=== PATIENT | female | born 1980 | race Caucasian/White ===

== ENCOUNTER → 2016-04-28 | Emergency (ER) | payer OTHER ==
[~2016-04-28] MED LIST: RHO(D) IMMUNE GLOBULIN 1,500 UNIT DISP.SYRIN IM ONE
[2016-04-28 10:23] VITALS: PULSE 89; BMI 25.7
--- NOTE | 2016-04-28 10:38 | PDOC ---
History of Present Illness - General Chief Complaint: Vaginal Bleeding Stated Complaint: 6WKS , ABD PAIN, BLEEDING Time Seen by Provider: 04/28/16 10:33 History Source: Patient Exam Limitations: No Limitations - History of Present Illness Initial Comments: CHIEF COMPLAINT: 35 y/o [id number], approximately 6 week female with LMP 03/17/16 c/o vaginal bleeding yesterday. HISTORY OF PRESENT ILLNESS: The patient states she had 1 episode of vaginal bleeding yesterday with a few clots. She also had some mild lower abdominal cramping that felt like a period. She states everything stopped. Today she continues to have lower pelvic pressure and called Dr. Singh who suggested she come here to be evaluated. The patient denies f/c, n/v/d, CP, SOB, back pain, hematuria, dysuria. Vital signs on arrival are within normal limits. REVIEW OF SYSTEMS: GENERAL/CONSTITUTIONAL: No fever/chills. No weakness. No weight change. HEAD, EYES, EARS, NOSE AND THROAT: No change in vision. No ear pain or discharge. No sore throat. CARDIOVASCULAR: No chest pain or shortness of breath. RESPIRATORY: No cough, wheezing, or hemoptysis. GASTROINTESTINAL: +abdominal cramping. No nausea, vomiting, diarrhea. GENITOURINARY: No dysuria, frequency, or change in urination. +vaginal bleeding MUSCULOSKELETAL: No joint or muscle swelling or pain. No neck or back pain. SKIN: No rash or easy bruising. NEUROLOGIC: No headache, vertigo, loss of consciousness, or loss of sensation. PHYSICAL EXAM: GENERAL: The patient is awake, alert, and fully oriented, in no acute distress. She is well appearing and ambulatory. HEAD: Normal with no signs of trauma. ENT: Pupils equal, round and reactive to light, extraocular movements intact, sclera anicteric, conjunctiva clear. Neck supple. LUNGS: Clear to auscultation bilaterally. Normal excursion. No respiratory distress or use of accessory muscles. CV: RRR, S1/S2, no MRG. Cap refill < 2 sec. ABDOMEN: Soft, non-distended, non-tender even to deep palpation, no hepatomegaly or splenomegaly, no masses. VAGINAL: Scant brown blood seen at the opening of the os EXTREMITIES: Normal range of motion, no edema. NEUROLOGICAL: Normal speech, normal gait. CN II-XII grossly intact. PSYCH: Normal mood, normal affect. SKIN: Warm, dry, normal turgor, no rashes or lesions noted. Past History - Past Medical History Allergies/Adverse Reactions: Allergies Allergy/AdvReac Type Severity Reaction Status Date / Time No Known Allergies Allergy Verified 04/28/16 10:16 Home Medications: Ambulatory Orders Pnv Comb.no58/Iron Bisgly/FA [ Capsule] 1 cap PO DAILY 05/04/11 Asthma: No Cancer: No Cardiac Disorders: No Diabetes: No HTN: No Seizures: No Thyroid Disease: No Other medical history: denies - Psycho/Social/Smoking Cessation Hx Suicidal Ideation: No Smoking History: Never smoked Have you smoked in the past 12 months: No Hx Alcohol Use: No Drug/Substance Use Hx: No Substance Use Type: None Hx Substance Use Treatment: No *Physical Exam - Vital Signs Last Vital Signs Temp Pulse Resp BP Pulse Ox 97.9 F 89 14 110/54 99 04/28/16 10:16 04/28/16 10:16 04/28/16 10:16 04/28/16 10:16 04/28/16 10:16 ED Treatment Course - LABORATORY CBC & Chemistry Diagram: 04/28/16 10:59 04/28/16 10:59 Medical Decision Making - Medical Decision Making A/P: 35 y/o afebrile female, approximately 6 weeks c/o vaginal bleeding. Plan is as follows: 1. labs 2. UA/culture 3. Transvaginal Ultrasound Labs ok O Negative blood type - Rhogam ordered Transvaginal Ultrasound IMPRESSION: Single, live intrauterine of 7 weeks 1 day with heart rate of 140 bpm Gave patient all of her results. Instructed her to keep follow up appointment scheduled for 05/[address] Singh. Instructed her to return to the ER with any worsening or concerning symptoms. The patient verbalizes understanding of all instructions, has no further questions and is awaiting discharge. *DC/Admit/Observation/Transfer Diagnosis at time of Disposition: Vaginal bleeding in Qualifiers: Trimester: first trimester Qualified Code(s): O46.91 - Antepartum hemorrhage, unspecified, first trimester - Discharge Dispostion Disposition: HOME Condition at time of disposition: Good - Referrals Referrals: Ten Singh MD [Primary Care Provider] - (Keep appointment scheduled in May) - Patient Instructions Printed Discharge Instructions: DI for Vaginal Bleeding During Additional Instructions: Discharge Instructions: -Your ultrasound showed a baby of 7 weeks, 1 day with heart rate of 140bpm -Please keep your follow up appointment scheduled for next week with Dr. Singh -Return to the ER with any worsening or concerning symptoms. Print Language: WELSH
[2016-04-28 11:09] LABS: BASOPHIL 0.4 % (0-2.0); EOSINOPHIL 1.8 % (0-4.5); MCH 29.5 pg (25.7-33.7); MEAN CELL VOLUME 86.7 fl (80-96); MEAN PLT VOLUME 7.4 fl (7.5-11.1); NEUTROPHILS 68.6 % (42.8-82.8); PLATELET COUNT 234 K/MM3 (134-434); RDW 12.8 % (11.6-15.6); WHITE BLOOD COUNT 11.8 K/mm3 (4.0-10.0)
[2016-04-28 11:21] LABS: URINE APPEARANCE CLEAR; URINE BILIRUBIN NEGATIVE (NEGATIVE); URINE BLOOD NEGATIVE (NEGATIVE); URINE COLOR LTYELLOW; URINE GLUCOSE (UA) NEGATIVE (NEGATIVE); URINE KETONE NEGATIVE (NEGATIVE); URINE LEUK ESTERASE NEGATIVE (NEGATIVE); URINE NITRITE NEGATIVE (NEGATIVE); URINE PROTEIN NEGATIVE (NEGATIVE); URINE UROBILINOGEN NEGATIVE E.U./dl (0.2-1.0)
[2016-04-28 11:32] LABS: ALBUMIN 3.8 g/dl (3.4-5.0); ANION GAP 8 (8-16); BILIRUBIN,TOTAL 0.6 mg/dL (0.2-1.0); CALCIUM 8.7 mg/dL (8.5-10.1); CO2 27 mmol/L (21-32); CREATININE 0.6 mg/dL (0.55-1.02); GLUCOSE,RANDOM 94 mg/dL (74-106); SGOT/AST 11 U/L (15-37); SGPT/ALT 18 U/L (12-78); TOT PROT 7.4 g/dl (6.4-8.2)
[2016-04-28 11:47] LABS: ALK PHOS 73 U/L (45-117)
--- NOTE | 2016-04-28 11:59 | PDOC ---
[id number] 04/28/16 10:16 04/28/16 10:16 04/28/16 10:16 04/28/16 10:16 04/28/16 10:16 - Physical Exam Comments: 04/28/16 11:58 The patient was examined by [GATITO Verdugo] under my direct supervision. I personally evaluated the patient. I concur with the above findings and the plan of care. ED Treatment Course - LABORATORY CBC & Chemistry Diagram: 04/28/16 10:59 04/28/16 10:59 - ADDITIONAL ORDERS Additional order review: Laboratory Results 04/28/16 04/28/16 11:06 10:59 Sodium 139 Potassium 4.0 Chloride 104 Carbon Dioxide 27 Anion Gap 8 BUN 10 D Creatinine 0.6 Creat Clearance w eGFR > 60 Random Glucose 94 Calcium 8.7 Total Bilirubin 0.6 AST 11 L ALT 18 Alkaline Phosphatase 73 Total Protein 7.4 Albumin 3.8 Beta HCG, Quant 75391.4 Urine Color Ltyellow Urine Appearance Clear Urine pH 7.0 Ur Specific [place] 1.017 Urine Protein Negative Urine Glucose (UA) Negative Urine Ketones Negative Urine Blood Negative Urine Nitrite Negative Urine Bilirubin Negative Urine Urobilinogen Negative Ur Leukocyte Esterase Negative 04/28/16 10:59 RBC 4.62 D MCV 86.7 MCHC 34.0 RDW 12.8 MPV 7.4 L D Neutrophils % 68.6 Lymphocytes % 23.5 Monocytes % 5.7 Eosinophils % 1.8 D Basophils % 0.4 *DC/Admit/Observation/Transfer Diagnosis at time of Disposition: Vaginal bleeding in - Discharge Dispostion Disposition: HOME Condition at time of disposition: Good - Referrals Referrals: Ten Singh MD [Primary Care Provider] - (Keep appointment scheduled in May) - Patient Instructions Printed Discharge Instructions: DI for Vaginal Bleeding During Additional Instructions: Discharge Instructions: -Your ultrasound showed a baby of 7 weeks, 1 day with heart rate of 140bpm -Please keep your follow up appointment scheduled for next week with Dr. Singh -Return to the ER with any worsening or concerning symptoms. Print Language: NAURUAN
[2016-04-28 14:40] VITALS: BP 120/70; TEMP 98.3
== END | disposition home or self-care (01) ==
LOC: JER 10:13
DX: O46.91 Antepartum hemorrhage, unspecified, first trimester (principal); Z3A.09 9 weeks gestation of pregnancy; Z29.13 Encounter for prophylactic Rho(D) immune globulin
CPT/HCPCS: 36415; 76817-TC; 80053; 81003; 84702; 85025; 86850; 86900; 86901; 86999; 87086; 99283-25; J1561

== ENCOUNTER 2016-12-20 04:28 | Inpatient (IN) | payer OTHER ==
[2016-12-20 05:19] LABS: BASOPHIL 0.3 % (0-2.0); EOSINOPHIL 1.6 % (0-4.5); MCH 29.7 pg (25.7-33.7); MCHC 34.4 g/dl (32.0-36.0); MEAN CELL VOLUME 86.3 fl (80-96); MEAN PLT VOLUME 7.9 fl (7.5-11.1); NEUTROPHILS 58.7 % (42.8-82.8); PLATELET COUNT 189 K/MM3 (134-434); RDW 13.4 % (11.6-15.6); WHITE BLOOD COUNT 9.3 K/mm3 (4.0-10.0)
[2016-12-20 05:30] LABS: INR 0.92 (0.82-1.09); PROTHROMBIN TIME (PATIENT) 10.4 SEC (9.98-11.88)
[2016-12-20 05:38] LABS: ANION GAP 11 (8-16); CALCIUM 8.6 mg/dL (8.5-10.1); CO2 23 mmol/L (21-32); CREATININE 0.7 mg/dL (0.55-1.02); GLUCOSE,RANDOM 94 mg/dL (74-106)
[2016-12-20] MEDS ORDERED: BENZOCAINE 20% 57 GM BOTTLE TP PRN (05:51)
[2016-12-20] MEDS ORDERED: METHYLERGONOVINE MALEATE 0.2 MG/1 ML AMP IM PRN (05:51)
[2016-12-20] MEDS ORDERED: BENZOCAINE 28 GM HEMORRHOIDAL OINTMENT TP PRN (05:51)
[2016-12-20] MEDS ORDERED: BISACODYL 10 MG SUPP.RECT RC PRN (05:51)
[2016-12-20] MEDS ORDERED: WITCH HAZEL 50% (TUCKS) 40 PAD/JAR PAD TP PRN (05:51)
[2016-12-20] MEDS ORDERED: DEXTROSE 5%-LACTATED RINGERS 1,000 ML IV SCH (06:00)
[2016-12-20] MEDS ORDERED: OXYTOCIN 20 UNITS in 0.9% NS 1,000 ML IV SCH (06:00)
[2016-12-20 06:02] VITALS: BMI 27.2
[2016-12-20] MEDS: IBUPROFEN 600 MG TABLET (FP) PO PRN ×2 (07:51→14:41)
[2016-12-20] MEDS: ACETAMINOPHEN 325 MG TABLET (FP) PO PRN (07:54)
--- NOTE | 2016-12-20 11:27 | HP ---
Admitting History and Physical - Admission Chief Complaint: labor pains History of Present Illness: 36 y/o at term comes in 9 cm, pt of [facility]. 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: Alzheimer's, CVA, Dementia, Migraine, Multiple Sclerosis, Peripheral Neuropathy, Parkinson's, Seizure, Syncope, TIA, Vertigo, Other Cardiovascular: No: AFIB, Aneurysm, Aortic Insufficiency, Aortic Stenosis, CAD, CHF, Deep Vein Thrombosis, HTN, Hyperlipdemia, ID, Mitral Insufficiency, Mitral Stenosis, Murmur, Pulmonary Hypertension, Other Gastrointestinal: No: Ascites, Cancer, Constipation, Crohn's Disease, Diverticulitis, Diverticulosis, Esophageal Varices, Gastritis, GERD, GI Bleed, Hemorrhoids, Hiatal Hernia, Inflamatory Bowel Disease, Irritable Bowel Disease, Pancreatitis, Peptic Ulcer Disease, Ulcerative Colitis, Other Hepatobiliary: No: Cirrhosis, Cholelithiasis, Cholecystitis, Choledocholithiasis , Hepatitis A, Hepatitis B, Hepatitis C, Other Renal/: No: Renal Failure, Renal Inusuff, BPH, Cancer, Hematuria, Hemodialysis , Neurogenic Bladder, Renal Calculi, UTI, Other Reproductive: No: Ectopic , Endometriosis, Fibroids, PID, Polycystic Ovary Syndrome, Postmenopausal, Other ...LMP: 03/17/16 ...: 4 ...Para: 2 Heme/Onc: No: Anemia, B12 Deficiency, Bleeding Disorder, Cancer, Current Chemotherapy, Current Radiation Therapy, Hemochromatosis, Hypercoaguable State, Myeloproliferative Synd, Sickle Cell Disease, Sickle Cell Trait, Thrombocytopenia, Other Infectious Disease: No: AIDS, C-Diff, Herpes Zoster, HIV, MRSA, STD's, Tuberculosis, VREF, Other Psych: No: Addictions, Anxiety, Bipolar, Depression, Panic, Psychosis, Schizophrenia, Other Musculoskeletal: No: Bursitis, Chronic low back pain, Hemiparesis, Hemiplegia, Osteoarthritis, Paraplegia, Other Rheumatology: No: Fibromyalgia, Gout, Lupus, Rheumatoid Arthritis, Sarcoidosis, Vasculitis, Other ENT: No: Allergic Rhinitis, Sinusitis, Other Endocrine: No: [place]'s Disease, [place]'s Disease, Diabetes Insipidus, Diabetes Mellitus, Hyperparathyroidism, Hyperthyroidism, Hypothyroidism, Osteopenia, SIADH, Other Dermatology: No: Basal Cell, Cellulitis, Eczema, Melanoma, Psoriasis, Squamous Cell, Other - Past Surgical History Past Surgical History: No: None, AAA Repair, AICD, Amputation, Appendectomy, Arthrosocopy, AV Fistula/Graft, Bariatric Surgery, Breast Biopsy, Bypass, CABG, Carotid Endarterectomy, Cataract Removal, Cholecystectomy, Colectomy, Colonoscopy, Colostomy, Craniotomy, , Cystectomy, Hernia Repair, Hysterectomy, Ileal Conduit, Ileosotomy, Joint Replacement, Kidney Transplant, Laminectomy, Liver Transplant, Mastectomy, Nephrectomy, Oopherectomy, Orchiectomy, Permanent Pacemaker, Prostatectomy, Splenectomy, Stent, Thoracotomy , TURP, Tonsillectomy, Tubal Ligation, Upper Endoscopy, Valve Replacement, Vasectomy, Vein Stripping/Ligation - Advance Directives Advance Directives: No: Living Will, Health Care Proxy, DNR, Organ Donor, Tissue Donor, MOLST - Smoking History Smoking history: Never smoked Have you smoked in the past 12 months: No - Alcohol/Substance Use Hx Alcohol Use: No History of Substance Use: denies: None, Cocaine, Heroin, Marijuana, Prescription , Tranquilizers - Social History Usual Living Arrangement: No: Alone, With Spouse, With Parent, With Significant Other, With Child, Assisted Living, Halfway, Other Home Medications - Allergies Allergies/Adverse Reactions: Allergies Allergy/AdvReac Type Severity Reaction Status Date / Time No Known Allergies Allergy Verified 12/20/16 05:10 - Home Medications Home Medications: Ambulatory Orders Pnv Comb.no58/Iron Bisgly/FA [ Capsule] 1 cap PO DAILY 05/04/11 Review of Systems - Review of Systems Constitutional: denies: No Symptoms, Chills, Diaphoresis, Fever, Lethargy, Loss of Appetite, Malaise, Night Sweats, Unintentional Wgt. Loss, Weakness, Other Eyes: denies: No Symptoms, Blind Spots, Blurred Vision, Double Vision, Eye Pain , Floaters, Photophobia, Recent Change in Vision, Other HENT: denies: No Symptoms, Difficult Swallowing, Ear Discharge, Ear Pain, Epistaxis, Gingival Bleeding, Hearing Loss, Mouth Swelling, Nasal Congestion, Ocular Prosthesis, Throat Pain, Toothache, Ringing in Ears, Other Neck: denies: No Symptoms, Decreased ROM, Lumps, Pain on Movement, Stiffness, Swollen Glands, Tenderness, Other Cardiovascular: denies: No Symptoms, Chest Pain, Edema, Palpitations, Shortness of Breath, Other Gastrointestinal: denies: No Symptoms, Abdominal Pain, Bloating, Constipation, Diarrhea, Dysphagia, Indigestion, Melena, Nausea, Rectal Bleeding, Vomiting, Vomiting Blood, Other Musculoskeletal: reports: No Symptoms Integumentary: reports: No Symptoms Endocrine: reports: No Symptoms Hematology/Lymphatic: reports: No Symptoms Psychiatric: reports: No Symptoms Physical Examination Vital Signs: Vital Signs Temperature 98.8 F 12/20/16 07:00 Pulse Rate 74 12/20/16 07:00 Respiratory Rate 20 12/20/16 07:00 Blood Pressure 119/60 12/20/16 07:00 O2 Sat by Pulse Oximetry (%) 98 12/20/16 07:00 Constitutional: Yes: Well Nourished Eyes: Yes: WNL HENT: Yes: WNL Neck: Yes: WNL Cardiovascular: Yes: WNL Respiratory: Yes: WNL Gastrointestinal: Yes: WNL ...Rectal Exam: Yes: WNL Renal/: Yes: WNL Extremities: Yes: WNL Integumentary: Yes: WNL ...Motor Strength: WNL Psychiatric: Yes: WNL Labs: CBC, BMP 12/20/16 05:00 12/20/16 05:00 Assessment/Plan admit labs expect
[2016-12-21] MEDS: ACETAMINOPHEN 325 MG TABLET (FP) PO PRN ×2 (01:08→23:54)
[2016-12-21] MEDS: IBUPROFEN 600 MG TABLET (FP) PO PRN ×2 (01:09→23:55)
--- NOTE | 2016-12-21 06:25 | PN ---
Post Progress Note - Subjective Subjective: 36 yo Para 3 status post normal vaginal delivery, seen and evaluated. Doing well, no complaints. Post Day: 1 Type of Delivery: Vital Signs: Vital Signs Temperature 98.6 F 12/21/16 01:31 Pulse Rate 74 12/21/16 01:31 Respiratory Rate 20 12/21/16 01:31 Blood Pressure 137/80 12/21/16 01:31 O2 Sat by Pulse Oximetry (%) 98 12/20/16 07:00 Uterus: Yes: Fundus Firm Abdomen/GI: Yes: Abdomen soft, Tolerating PO Lochia: Yes: Rubra Lochia, amount: Moderate Extremities: Yes: Calves non-tender Activity: Ambulating - Labs Labs: CBC WBC 9.3 K/mm3 (4.0-10.0) 12/20/16 05:00 RBC 4.52 M/mm3 (3.60-5.2) 12/20/16 05:00 Hgb 13.4 GM/dL (10.7-15.3) 12/20/16 05:00 Hct 39.0 % (32.4-45.2) 12/20/16 05:00 MCV 86.3 fl (80-96) 12/20/16 05:00 MCH 29.7 pg (25.7-33.7) 12/20/16 05:00 MCHC 34.4 g/dl (32.0-36.0) 12/20/16 05:00 RDW 13.4 % (11.6-15.6) 12/20/16 05:00 Plt Count 189 K/MM3 (134-434) 12/20/16 05:00 MPV 7.9 fl (7.5-11.1) 12/20/16 05:00 Neutrophils % 58.7 % (42.8-82.8) 12/20/16 05:00 Lymphocytes % 32.1 % (8-40) D 12/20/16 05:00 Monocytes % 7.3 % (3.8-10.2) 12/20/16 05:00 Eosinophils % 1.6 % (0-4.5) 12/20/16 05:00 Basophils % 0.3 % (0-2.0) 12/20/16 05:00 Problem List - Problems (1) Status post normal vaginal delivery Code(s): [id number] - Assessment/Plan Status post normal vaginal delivery Stable Continue routine care
[2016-12-21 08:50] LABS: BASOPHIL 0.5 % (0-2.0); EOSINOPHIL 3.2 % (0-4.5); MCH 29.6 pg (25.7-33.7); MCHC 34.5 g/dl (32.0-36.0); MEAN CELL VOLUME 85.9 fl (80-96); MEAN PLT VOLUME 7.3 fl (7.5-11.1); NEUTROPHILS 60.5 % (42.8-82.8); PLATELET COUNT 167 K/MM3 (134-434); RDW 13.8 % (11.6-15.6)
[2016-12-21] MEDS ORDERED: DIPHTH,PERTUSS(ACELL),TET 0.5 ML DISP.SYRIN IM ONE (10:00)
[2016-12-21] MEDS ORDERED: SENNOSIDES/DOCUSATE COMBO (SENNA PLUS) TABLET (UD) PO PRN (22:00)
--- NOTE | 2016-12-22 07:14 | PN ---
Post Progress Note Post Day: 2 Type of Delivery: Vital Signs: Vital Signs Temperature 97.8 F 12/21/16 22:00 Pulse Rate 72 12/21/16 22:00 Respiratory Rate 18 12/21/16 22:00 Blood Pressure 128/77 12/21/16 22:00 O2 Sat by Pulse Oximetry (%) 98 12/20/16 07:00 Breast Exam: Yes: Soft Uterus: Yes: Fundus Firm Abdomen/GI: Yes: Abdomen soft Lochia, amount: Small Extremities: Yes: Calves non-tender Perineum: Yes: Intact Activity: Ambulating - Labs Labs: CBC WBC 11.0 K/mm3 (4.0-10.0) H 12/21/16 08:00 RBC 3.70 M/mm3 (3.60-5.2) 12/21/16 08:00 Hgb 11.0 GM/dL (10.7-15.3) D 12/21/16 08:00 Hct 31.8 % (32.4-45.2) L D 12/21/16 08:00 MCV 85.9 fl (80-96) 12/21/16 08:00 MCH 29.6 pg (25.7-33.7) 12/21/16 08:00 MCHC 34.5 g/dl (32.0-36.0) 12/21/16 08:00 RDW 13.8 % (11.6-15.6) 12/21/16 08:00 Plt Count 167 K/MM3 (134-434) 12/21/16 08:00 MPV 7.3 fl (7.5-11.1) L 12/21/16 08:00 Neutrophils % 60.5 % (42.8-82.8) 12/21/16 08:00 Lymphocytes % 31.4 % (8-40) 12/21/16 08:00 Monocytes % 4.4 % (3.8-10.2) 12/21/16 08:00 Eosinophils % 3.2 % (0-4.5) D 12/21/16 08:00 Basophils % 0.5 % (0-2.0) 12/21/16 08:00 Assessment/Plan ppd#2 dc home
[2016-12-22 08:27] VITALS: BP 134/71; PULSE 69; TEMP 98.3
== END 2016-12-22 11:40 | disposition home or self-care (01) | DRG 560 ==
LOC: JLDR 04:28 → J3W 08:30
PROVIDERS: ADMIT Obstetrics & Gynecology; ATTEND Obstetrics & Gynecology
PROC: 10E0XZZ Delivery of Products of Conception, External Approach (ICD-10-PCS; principal; 2016-12-20)
DX: O80 Encounter for full-term uncomplicated delivery (principal); Z3A.40 40 weeks gestation of pregnancy; Z37.0 Single live birth
CPT/HCPCS: 36415; 59409; 80048; 85025; 85610; 85730; 86593; 86850; 86900; 86901

== ENCOUNTER 2016-12-31 16:34 | Emergency (ER) | payer OTHER ==
[2016-12-31 16:58] VITALS: BMI 23.9
--- NOTE | 2016-12-31 18:01 | PDOC ---
History of Present Illness - History of Present Illness Initial Comments: 12/31/16 17:52 The patient is a 36 yo s/p on 12/20 and no other PMH who comes into the ED c/o generalized weakness for the past 1 day. This weakness was also associated with a feeling of weakness and tiredness in the back of her neck for the same time period. The patient also c/o decreased appetite as well as decreased sleep since the patient's child was born. Patient states that her mind was often preoccupied with managing her 3 kids and she occasionally forgets to eat. Patient denies SOB, CP, nausea, vomiting, dizziness, abdominal pain, excessive vaginal bleeding or discharge. <Eligio Guadarrama - Last Filed: 12/31/16 18:09> <Betty Dowd - Last Filed: 12/31/16 21:50> - General Chief Complaint: Headache Stated Complaint: HEADACHE/NECK PAIN Time Seen by Provider: 12/31/16 17:18 Past History - Past Medical History Asthma: No Cancer: No Cardiac Disorders: No Diabetes: No HTN: No Seizures: No Thyroid Disease: No - Reproductive History (#): 3 Para: 3 Therapeutic (s) & number: No Spontaneous : 1 - Suicide/Smoking/Psychosocial Hx Smoking History: Never smoked Have you smoked in the past 12 months: No Information on smoking cessation initiated: No Hx Alcohol Use: No Drug/Substance Use Hx: No Substance Use Type: None Hx Substance Use Treatment: No <Eligio Guadarrama - Last Filed: 12/31/16 18:09> <Betty Dowd - Last Filed: 12/31/16 21:50> - Past Medical History Allergies/Adverse Reactions: Allergies Allergy/AdvReac Type Severity Reaction Status Date / Time No Known Allergies Allergy Verified 12/31/16 16:58 Home Medications: Ambulatory Orders Cephalexin Monohydrate [Keflex -] 500 mg PO Q8H #21 capsule MDD 3 12/31/16 Cephalexin [Keflex] 500 mg PO TID 7 Days MDD 3 12/31/16 Review of Systems - Review of Systems Constitutional: No: Chills, Fever, Night Sweats HEENTM: No: Blurred Vision, Recent change in vision Respiratory: No: Shortness of Breath Cardiac (ROS): No: Chest Pain, Lightheadedness ABD/GI: No: Nausea, Vomiting Neurological: No: Headache, Numbness <Eligio Guadarrama - Last Filed: 12/31/16 18:09> *Physical Exam - Vital Signs Last Vital Signs Temp Pulse Resp BP Pulse Ox 97.9 F 82 18 125/64 100 12/31/16 16:52 12/31/16 16:52 12/31/16 16:52 12/31/16 16:52 12/31/16 16:52 - Physical Exam General Appearance: Yes: Appropriately Dressed. No: Apparent Distress HEENT: positive: EOMI, AILS. negative: Scleral Icterus (R), Scleral Icterus (L) Neck: positive: Trachea midline Respiratory/Chest: positive: Lungs Clear, Normal Breath Sounds. negative: Respiratory Distress, Accessory Muscle Use Cardiovascular: positive: Regular Rhythm, Regular Rate, S1, S2. negative: JVD, Murmur, Gallop/S3, Gallop/S4 Gastrointestinal/Abdominal: positive: Normal Bowel Sounds, Soft. 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 negative: EOM Palsy, Numbness, Sensory Deficit <Eligio Guadarrama - Last Filed: 12/31/16 18:09> - Vital Signs Last Vital Signs Temp Pulse Resp BP Pulse Ox 97.9 F 82 18 125/64 100 12/31/16 16:52 12/31/16 16:52 12/31/16 16:52 12/31/16 16:52 12/31/16 16:52 <Betty Dowd - Last Filed: 12/31/16 21:50> ED Treatment Course - LABORATORY CBC & Chemistry Diagram: 12/31/16 18:30 12/31/16 18:30 - ADDITIONAL ORDERS Additional order review: Laboratory Results 12/31/16 18:30 Sodium 140 Potassium 3.8 Chloride 106 Carbon Dioxide 26 Anion Gap 8 BUN 11 D Creatinine 0.8 Creat Clearance w eGFR > 60 Random Glucose 95 Calcium 8.8 Total Bilirubin 0.6 AST 22 D ALT 33 D Alkaline Phosphatase 113 D Total Protein 6.9 Albumin 3.4 12/31/16 18:30 RBC 4.67 D MCV 84.9 MCHC 34.2 RDW 13.1 MPV 7.0 L - Medications Given in the ED: ED Medications Discontinued Medications Generic Name Dose Route Start Last Admin Trade Name Tony PRN Reason Stop Dose Admin Sodium Chloride 1,000 mls @ 1,000 mls/hr 12/31/16 18:08 12/31/16 18:40 Normal Saline - IV 12/31/16 19:07 1,000 mls/hr ASDIR STA Administration <Betty Dowd - Last Filed: 12/31/16 21:50> Medical Decision Making - Medical Decision Making 12/31/16 18:23 The patient is a 36 yo f w/ no PMH and about 2 weeks post comes in c/o generalized weakness and decreased appetite. Patient endorses decreased PO intake and decreased sleep recently. Patient denies any headache at any point. Patient does not endorse any excessive bleeding. No focal neurological deficits appreciated. Patient is likely sleep deprived and dehydrated. -CBC, CMP -1L NS bolus -will reevaluate <Eligio Guadarrama - Last Filed: 12/31/16 18:09> *DC/Admit/Observation/Transfer <Eligio Guadarrama - Last Filed: 12/31/16 18:09> - Discharge Dispostion Admit: No <Betty Dowd - Last Filed: 12/31/16 21:50> Diagnosis at time of Disposition: Dehydration, Urinary tract infection - Discharge Dispostion Disposition: HOME Condition at time of disposition: Improved - Prescriptions Prescriptions: Cephalexin [Keflex] 500 mg PO TID 7 Days MDD 3 Cephalexin Monohydrate [Keflex -] 500 mg PO Q8H #21 capsule MDD 3 - Referrals Referrals: Pete Singh [Primary Care Provider] - - Patient Instructions Printed Discharge Instructions: Infant Feeding: Breast or Bottle?, DI for Dehydration -- Adult Additional Instructions: you should follow up with your primary doctor. call to schedule. be sure to drink plenty of fluids and eat plenty. return for any problems or concerns. Print Language: FINNISH
[2016-12-31] MEDS ORDERED: SODIUM CHLORIDE 1,000 ML IV STA (18:08)
[2016-12-31 18:48] LABS: MCH 29.1 pg (25.7-33.7); MCHC 34.2 g/dl (32.0-36.0); MEAN CELL VOLUME 84.9 fl (80-96); PLATELET COUNT 331 K/MM3 (134-434); RDW 13.1 % (11.6-15.6); WHITE BLOOD COUNT 15.6 K/mm3 (4.0-10.0)
[2016-12-31 19:26] LABS: ALBUMIN 3.4 g/dl (3.4-5.0); ANION GAP 8 (8-16); CALCIUM 8.8 mg/dL (8.5-10.1); CO2 26 mmol/L (21-32); CREATININE 0.8 mg/dL (0.55-1.02); GLUCOSE,RANDOM 95 mg/dL (74-106); SGOT/AST 22 U/L (15-37); SGPT/ALT 33 U/L (12-78)
[2016-12-31 19:28] LABS: ALK PHOS 113 U/L (45-117); BILIRUBIN,TOTAL 0.6 mg/dL (0.2-1.0); TOT PROT 6.9 g/dl (6.4-8.2)
--- NOTE | 2016-12-31 19:30 | PDOC ---
*Physical Exam - Vital Signs Last Vital Signs Temp Pulse Resp BP Pulse Ox 97.9 F 82 18 125/64 100 12/31/16 16:52 12/31/16 16:52 12/31/16 16:52 12/31/16 16:52 12/31/16 16:52 - Physical Exam Comments: 12/31/16 19:30 GENERAL: Awake, alert, and fully oriented, in no acute distress HEAD: No signs of trauma, normocephalic, atraumatic EYES: PERRLA, EOMI, sclera anicteric, conjunctiva clear ENT: Auricles normal inspection, hearing grossly normal, nares patent, oropharynx clear without exudates. Moist mucosa NECK: Normal ROM, supple, no lymphadenopathy, JVD, or masses LUNGS: No distress, speaks full sentences, clear to auscultation bilaterally HEART: Regular rate and rhythm, normal S1 and S2, no murmurs, rubs or gallops, peripheral pulses normal and equal bilaterally. ABDOMEN: Soft, nontender, normoactive bowel sounds. No guarding, no rebound. No masses EXTREMITIES : Normal inspection, Normal range of motion, no edema. No clubbing or cyanosis. SKIN: Warm, Dry, normal turgor, no rashes or lesions noted. ED Treatment Course - LABORATORY CBC & Chemistry Diagram: 12/31/16 18:30 12/31/16 18:30 - ADDITIONAL ORDERS Additional order review: 12/31/16 18:30 RBC 4.67 D MCV 84.9 MCHC 34.2 RDW 13.1 MPV 7.0 L - Medications Given in the ED: ED Medications Discontinued Medications Generic Name Dose Route Start Last Admin Trade Name Freq PRN Reason Stop Dose Admin Sodium Chloride 1,000 mls @ 1,000 mls/hr 12/31/16 18:08 12/31/16 18:40 Normal Saline - IV 12/31/16 19:07 1,000 mls/hr ASDIR STA Administration Medical Decision Making - Medical Decision Making 12/31/16 19:27 Per patient hand off from Dr. Guadarrama. 36 yo F 2 weeks who presents with generalized weakness and decreased appetite. reports insomnia and decreased apetitie since childbirth. This AM reports generalized weakness, and decreased PO intake. Physical exam benign and hemodynamically stable: ED Course: CBC, CMP, UA 1 L NS Patient status improved and requests D/c. 12/31/16 20:19 WBC 15.6 12/31/16 20:20 CMP: Unremarkable 12/31/16 23:32 Stable D/C *DC/Admit/Observation/Transfer Diagnosis at time of Disposition: Dehydration, UTI (urinary tract infection) - Discharge Dispostion Disposition: HOME Condition at time of disposition: Improved - Prescriptions Prescriptions: Cephalexin [Keflex] 500 mg PO TID 7 Days MDD 3 Cephalexin Monohydrate [Keflex -] 500 mg PO Q8H #21 capsule MDD 3 - Referrals Referrals: Pete Singh [Primary Care Provider] - - Patient Instructions Printed Discharge Instructions: Infant Feeding: Breast or Bottle?, DI for Dehydration -- Adult Additional Instructions: you should follow up with your primary doctor. call to schedule. be sure to drink plenty of fluids and eat plenty. return for any problems or concerns. Print Language: MACEDONIAN
--- NOTE | 2016-12-31 20:04 | PDOC ---
Attending Attestation - Resident Resident Name: ChiaraEligio - ED Attending Attestation I have performed the following: I have examined & evaluated the patient, The case was reviewed & discussed with the resident, I agree w/resident's findings & plan, Exceptions are as noted - HPI HPI: 12/31/16 19:59 36 yo F 2 weeks post here with c/o feeling weak, and tired, .describes a " weak feeling in back of head " lightheaded. no vertigo. denies headache ( contrary to triage note). no vision changes. no h/o diabetes or htn associated with . has 2 other small children in addition to new born, and states she has not been sleeping well. no f/c no cp no sob. no leg swelling. denies feelings of depression or suicidality, no homicidality. has not been eating well. is breast feeding. 12/31/16 20:01 - Physicial Exam PE: 12/31/16 20:01 awake alert lungs CTAB heart rrr no mrg. abd soft nt nd. ext wwp. no edema. nuero awake alert oriented x 3. 5/5 all four extremeties.CN intact. - Medical Decision Making 12/31/16 20:03 36 yo F post 2 weeks c/o feeling lightheaded, weak and tired. differential fatigue , dehydration anemia. electrolyte abnormality. denies headache. bp normal. will check labs ua . iv hydration reassess. 12/31/16 20:04 pt feeling improved. would like to go home. WBC noted to be elevated 15. ua pending. pt would like to go home. dc will call with results. phone [phone] 12/31/16 21:50 ua positive for uti. called in prescription for keflex 500 mg tid x 7 days.
[2016-12-31 20:09] VITALS: BP 135/73; PULSE 90; TEMP 97.7
[2016-12-31 20:51] LABS: URINE APPEARANCE SLCLOUDY; URINE BILIRUBIN NEGATIVE (NEGATIVE); URINE BLOOD 3+ (NEGATIVE); URINE COLOR STRAW; URINE GLUCOSE (UA) NEGATIVE (NEGATIVE); URINE KETONE NEGATIVE (NEGATIVE); URINE NITRITE NEGATIVE (NEGATIVE); URINE PROTEIN NEGATIVE (NEGATIVE); URINE UROBILINOGEN NEGATIVE mg/dL (0.2-1.0)
[2016-12-31 20:57] LABS: URINE MUCUS RARE; URINE RBC 3 /hpf (0-3); URINE WBC 29 /hpf (3-5)
[2016-12-31 23:08] LABS: URINE LEUK ESTERASE 3+ (NEGATIVE)
== END 2016-12-31 20:24 | disposition home or self-care (01) ==
LOC: JER 16:34
PROC: 3E0337Z Introduction of Electrolytic and Water Balance Substance into Peripheral Vein, Percutaneous Approach (ICD-10-PCS; principal; 2016-12-31)
DX: O86.29 Other urinary tract infection following delivery (principal); E86.0 Dehydration
CPT/HCPCS: 36415; 80053; 81003; 81015; 85027; 87086; 96360; 99283-25

== ENCOUNTER 2018-08-22 09:24 | Emergency (ER) | payer OTHER ==
[2018-08-22 09:30] VITALS: BP 130/65; PULSE 85; BMI 25.9
[2018-08-22] MEDS ORDERED: LIDOCAINE 5% TOPICAL PATCH TP ONE (10:16)
[2018-08-22] MEDS ORDERED: KETOROLAC TROMETHAMINE 60 MG/2 ML VIAL IM ONE (10:16)
[2018-08-22] MEDS ORDERED: LIDOCAINE 5% TOPICAL PATCH ONE ×2 (10:20)
[2018-08-22] MEDS ORDERED: KETOROLAC TROMETHAMINE 60 MG/2 ML VIAL ONE (10:20)
--- NOTE | 2018-08-22 10:36 | PDOC ---
History of Present Illness - General Chief Complaint: Pain, Acute Stated Complaint: NECK PAIN Time Seen by Provider: 08/22/18 09:37 History Source: Patient Exam Limitations: No Limitations Past History - Travel Traveled outside of the country in the last 30 days: No Close contact w/someone who was outside of country & ill: No - Past Medical History Allergies/Adverse Reactions: Allergies Allergy/AdvReac Type Severity Reaction Status Date / Time No Known Allergies Allergy Verified 08/22/18 09:28 Home Medications: Ambulatory Orders NK [No Known Home Medication] 08/22/18 Asthma: No Cancer: No Cardiac Disorders: No COPD: No Diabetes: No HTN: No Seizures: No Thyroid Disease: No - Reproductive History (#): 3 Para: 3 Therapeutic (s) & number: No Spontaneous : 1 - Suicide/Smoking/Psychosocial Hx Smoking History: Never smoked Have you smoked in the past 12 months: No Information on smoking cessation initiated: No Hx Alcohol Use: No Drug/Substance Use Hx: No Substance Use Type: None Hx Substance Use Treatment: No Review of Systems - Review of Systems Able to Perform ROS?: Yes Comments:: 08/22/18 10:31 CONSTITUTIONAL: Absent: fever, chills, diaphoresis, generalized weakness, malaise, loss of appetite HEENT: Present: neck pain Absent: rhinorrhea, nasal congestion, throat pain, throat swelling, difficulty swallowing, mouth swelling, ear pain, eye pain, visual Changes MUSCULOSKELETAL: Absent: myalgia, arthralgia, joint swelling SKIN: Absent: rash, itching, pallor NEUROLOGIC: Absent: headache, focal weakness or paresthesias, dizziness, unsteady gait, seizure, mental status changes, bladder or bowel incontinence PSYCHIATRIC: Absent: anxiety, depression, suicidal or homicidal ideation, hallucinations. Is the patient limited Romansh proficient: No *Physical Exam - Vital Signs Last Vital Signs Temp Pulse Resp BP Pulse Ox 85 18 130/65 100 08/22/18 09:28 08/22/18 09:28 08/22/18 09:28 08/22/18 09:28 - Physical Exam Comments: 08/22/18 10:32 GENERAL: Well developed, well nourished. Awake and alert. No acute distress. HEENT: Normocephalic, atraumatic. PERRLA, EOMI. No conjunctival pallor. Sclera are non- icteric. Moist mucous membranes. Oropharynx is clear. NECK: Supple. Full ROM. No JVD. Carotid pulses 2+ and symmetric, without bruits. No thyromegaly. No lymphadenopathy. MUSCULOSKELETAL TTP of the L trapezius muscle at the insertion points at the base of the skull and L shoulder. Dicofenec patch in place. Normal range of motion at all joints. No bony deformities or tenderness. No CVA tenderness. EXTREMITIES: No cyanosis. No clubbing. No edema. No calf tenderness. SKIN: Warm and dry. Normal capillary refill. No rashes. No jaundice. NEUROLOGICAL: Alert, awake, appropriate. Cranial nerves 2-12 intact. No deficits to light touch and temperature in face, upper extremities and lower extremities. No motor deficits in the in face, upper extremities and lower extremities. Normoreflexic in the upper and lower extremities. Normal speech. Toes are down- going bilaterally. Gait is normal without ataxia. PSYCHIATRIC: Cooperative. Good eye contact. Appropriate mood and affect. ED Treatment Course - ADDITIONAL ORDERS Additional order review: Laboratory Results 08/22/18 09:30 Urine HCG, Qual Negative - Medications Given in the ED: ED Medications Discontinued Medications Generic Name Dose Route Start Last Admin Trade Name Freq PRN Reason Stop Dose Admin Ketorolac Tromethamine 60 mg 08/22/18 10:16 08/22/18 10:29 Toradol Injection - IM 08/22/18 10:17 60 mg ONCE ONE Administration Lidocaine 1 patch 08/22/18 10:16 08/22/18 10:28 Lidoderm Patch - TP 08/22/18 10:17 1 patch ONCE ONE Administration Medical Decision Making - Medical Decision Making 08/22/18 10:33 The patient is a 38-year-old female no past medical history who presents to the ER today for left-sided neck pain and arm pain. She states her pain started on Tuesday. She took some Motrin at home with some relief of her symptoms. She last took Motrin last night. She states that since she still had pain this morning when she woke up she decided to come to the ER for evaluation for some stronger medication. 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 A/P: Cervical radiculopathy/trapezius strain On exam patient with palpable spasms over the left trapezius at both the base of the skull and left shoulder. Most likely a muscle spasm. Patient reports the symptoms traveling down her arm. Full range of motion of both the neck and arm intact. patient given Toradol and lidocaine patch with relief of symptoms. Diclofenac patch was removed. We will give or so follow-up. Discharge home I discussed the physical exam findings, ancillary test results and final diagnoses with the patient. I answered all of the patient's questions. The patient was satisfied with the care received and felt comfortable with the discharge plan and treatment plan. The Patient agrees to follow up with the primary care physician/specialist within 24-72 hours. Return precautions were given. *DC/Admit/Observation/Transfer Diagnosis at time of Disposition: Neck pain - Discharge Dispostion Disposition: HOME Condition at time of disposition: Stable Decision to Admit order: No - Referrals Referrals: Bernabe Schneider MD [Primary Care Provider] - - Patient Instructions Printed Discharge Instructions: DI for Cervical Radiculopathy Additional Instructions: you were evaluated for your neck pain today. It is most likely due to a muscle spasm. Please take the Medrol Dosepak and Flexeril as prescribed. You may also take Tylenol 1000 milligrams every 6 hours as needed for pain follow up with orthopedics if your symptoms are not improving. A referral has been provided. Return to the ER for any new or worsening symptoms. usted fue evaluado para guzman dolor de kuldip reid. Es ms probable debido a un espasmo muscular. Por favor, tome el Medrol Dosepak y Flexeril segn lo prescrito. Salbador puede shivam Tylenol 1000 miligramos cada 6 horas segn sea necesario para el dolor seguimiento con ortopedia si sergio sntomas no estn mejorando. Se cornell proporcionado valerie referencia. Regrese a Urgencias para cualquier sntoma nuevo o que empeore. Print Language: MACEDONIAN - Post Discharge Activity Forms/Work/School Notes: Back to Work
[2018-08-22] MEDS ORDERED: LIDOCAINE PATCH REMOVAL MC SCH (22:00)
== END 2018-08-22 10:35 | disposition home or self-care (01) ==
LOC: JERFT 09:24
PROC: 3E0233Z Introduction of Anti-inflammatory into Muscle, Percutaneous Approach (ICD-10-PCS; principal; 2018-08-22)
DX: M54.12 Radiculopathy, cervical region (principal); M62.838 Other muscle spasm
CPT/HCPCS: 84703; 96372; 99281-25

== ENCOUNTER 2018-11-29 04:11 | Emergency (ER) | payer OTHER ==
[2018-11-29 04:34] VITALS: TEMP 98.2; BMI 30.7
[2018-11-29] MEDS ORDERED: SODIUM CHLORIDE 1,000 ML IV STA (04:52)
--- NOTE | 2018-11-29 04:52 | PDOC ---
Attending Attestation - Resident Resident Name: Naveed Gallagher - ED Attending Attestation I have performed the following: I have examined & evaluated the patient, The case was reviewed & discussed with the resident, I agree w/resident's findings & plan - HPI HPI: 11/29/18 20:30 see resident hpi 11/29/18 20:30 - Physicial Exam PE: 11/29/18 20:30 agree with resident hpi - Medical Decision Making 11/29/18 20:30 38-year-old female with room spinning dizziness CT scan of the brain is negative Patient improved after meclizine and Reglan Patient discharged home with outpatient ENT follow-up
[2018-11-29] MEDS ORDERED: MECLIZINE HCL 25 MG TABLET (FP) PO ONE (04:53)
[2018-11-29] MEDS ORDERED: METOCLOPRAMIDE HCL INJECTION 10 MG/2 ML VIAL IVPB ONE (04:54)
[2018-11-29] MEDS ORDERED: METOCLOPRAMIDE HCL INJECTION 10 MG/2 ML VIAL IVPUSH ONE (04:54)
--- NOTE | 2018-11-29 04:54 | PDOC ---
History of Present Illness - General Chief Complaint: Lightheaded Stated Complaint: WEAKNESS Time Seen by Provider: 11/29/18 04:38 History Source: Patient Exam Limitations: Language Barrier - History of Present Illness Initial Comments: Mily Cazares is a 38 yo F w a hx of migraines and anxiety who presents to the [facility] er because she has been experiencing dizziness described as room spinning for the past 2 days associated with occasional bi-frontal headaches and generalized weakness. Patient also endorses nausea and occasional NBNB vomitus. Patient states her symptoms began tonight when she turned over in bed. She looked over at her and all of a sudden the room started spinning and she became nauseous. The patient states that every time she turns over in bed the room starts to spin. Patient states she had a URI last week and is recovering this week. Denies fevers, chills, chest pain, neck pain LMP: 20 days prior PCP: Bernabe Schneider PSH: None reported Allergies: NKA, NKDA Social Hx: Denies smoking, drinking, or other substance usage. Past History - Past Medical History Allergies/Adverse Reactions: Allergies Allergy/AdvReac Type Severity Reaction Status Date / Time No Known Allergies Allergy Verified 11/29/18 04:34 Home Medications: Ambulatory Orders Ergocalciferol [Vitamin D2] 50,000 unit PO WEEKLY 11/29/18 Meclizine HCl 25 mg PO PRN 10 Days #10 tab.chew 11/29/18 Sumatriptan Succinate [Imitrex -] 50 mg PO ASDIR PRN 11/29/18 Terbinafine HCl 250 mg PO DAILY 11/29/18 Asthma: No Cancer: No Cardiac Disorders: No COPD: No Diabetes: No HTN: No Seizures: No Thyroid Disease: No Other medical history: migraines - Reproductive History (#): 3 Para: 3 Therapeutic (s) & number: No Spontaneous : 1 - Psycho Social/Smoking Cessation Hx Smoking History: Never smoked Have you smoked in the past 12 months: No Hx Alcohol Use: No Drug/Substance Use Hx: No Substance Use Type: None Hx Substance Use Treatment: No Review of Systems - Review of Systems Able to Perform ROS?: Yes Comments:: CONSTITUTIONAL: Absent: fever, no chills, no fatigue EYES: Present: Room spinning ENT: Absent: ear pain, no sore throat CARDIOVASCULAR: Absent: chest pain, no palpitations RESPIRATORY: Absent: cough, no SOB GI: Present: Nausea, vomiting Absent: abdominal pain, no constipation, no diarrhea GENITOURINARY: Absent: dysuria, no frequency, no hematuria MUSKULOSKELETAL: Absent: back pain, no arthralgia, no myalgia SKIN: Absent: rash NEURO: Present: headache *Physical Exam - Vital Signs Last Vital Signs Temp Pulse Resp BP Pulse Ox 98.2 F 71 18 119/67 100 11/29/18 04:11/29/18 04:11/29/18 04:11/29/18 04:11/29/18 04:25 - Physical Exam Comments: GENERAL: Well developed, well nourished. Awake and alert. No acute distress. HEENT: Normocephalic, atraumatic. PERRLA, EOMI. No conjunctival pallor. Sclera are non- icteric. Moist mucous membranes. Oropharynx is clear. NECK: + b/l cervical adenopathy. Supple. Full ROM. No JVD. No thyromegaly. CARDIOVASCULAR: Regular rate and rhythm. No murmurs, rubs, or gallops. Distal pulses are 2+ and symmetric. PULMONARY: No evidence of respiratory distress. Lungs clear to auscultation bilaterally. No wheezing, rales or rhonchi. ABDOMINAL: Soft. Non-tender. Non-distended. No rebound or guarding. No organomegaly. Normoactive bowel sounds. MUSCULOSKELETAL Normal range of motion at all joints. No bony deformities or tenderness. No CVA tenderness. EXTREMITIES: No cyanosis. No clubbing. No edema. No calf tenderness. SKIN: Warm and dry. Normal capillary refill. No rashes. No jaundice. NEUROLOGICAL: Dixs-Hallpike test is + with head facing to the right. No other abnormal nystagmus. Alert, awake, appropriate. Cranial nerves 2-12 intact. No deficits to light touch in face, upper extremities and lower extremities. No motor deficits in the in face, upper extremities and lower extremities. Normal speech. Gait is normal without ataxia. PSYCHIATRIC: Cooperative. Good eye contact. Appropriate mood and affect. ED Treatment Course - LABORATORY CBC & Chemistry Diagram: 11/29/18 05:10 11/29/18 05:10 - RADIOLOGY Radiograph Interpretation: Head CT: HISTORY: Dizziness COMPARISON: None. FINDINGS: No evidence of hemorrhage, acute territorial infarction, mass effect, midline shift, hydrocephalus, or extra-axial collections. No hyperdense arterial or venous sign Clear paranasal sinuses, mastoid air cells, and middle ear cavities are The calvarium is intact. IMPRESSION: 1. No acute intracranial pathology Medical Decision Making - Medical Decision Making Mily Cazares is a 38 yo F w a hx of migraines and anxiety who presents to the [facility] er because she has been experiencing dizziness described as room spinning for the past 2 days associated with occasional bi-frontal headaches and generalized weakness. Patient also endorses nausea and occasional NBNB vomitus. Patient states her symptoms began tonight when she turned over in bed. She looked over at her and all of a sudden the room started spinning and she became nauseous. The patient states that every time she turns over in bed the room starts to spin. Patient states she had a URI last week and is recovering this week. Denies fevers, chills, chest pain, neck pain Vital Signs Temp Pulse Resp BP Pulse Ox 98.2 F 71 18 119/67 100 11/29/18 04:25 11/29/18 04:25 11/29/18 04:25 11/29/18 04:25 11/29/18 04:25 DDx IBNLT: Complex migraine, tension/cluster headache, BPPV, post viral labyrinthiitis, Brain lesion, electrolyte/metabolic disturbance, , meniere disease, ICH, arrhythmia Plan: Labs, EKG, Head CT, meclizine, IVNS, reglan, re-assess. EKG: NS rate of 73, 1st degree HB w NE of 228, normal axis, no hypertrophy, no ST elevations or depressions, no abnormal TWI's Labs: Unremarkable Head CT: No acute intracranial pathology Re-assessment: Patient feels better after supportive care Disposition: Home w PCP fu - Meclizine sent to pharmacy *DC/Admit/Observation/Transfer Diagnosis at time of Disposition: Vertigo, Weakness Peripheral vertigo Qualifiers: Laterality: unspecified laterality Qualified Code(s): H81.399 - Other peripheral vertigo, unspecified ear - Discharge Dispostion Disposition: HOME Condition at time of disposition: Improved Decision to Admit order: No - Prescriptions Prescriptions: Meclizine HCl 25 mg PO PRN 10 Days #10 tab.chew - Referrals Referrals: Bernabe Schneider MD [Primary Care Provider] - Sebas Garrett MD [Staff Physician] - Cheikh Slade MD [Staff Physician] - - Patient Instructions Printed Discharge Instructions: Vertigo (Alternative Therapy), Benign Paroxysmal Positional Vertigo, DI for Vertigo Additional Instructions: Please follow up with your primary doctor in the next 3 days. Come back to the ER immediately if you experience any pain, worsening of your symptoms, or any other concerns. Thank you for coming to the [facility] ER. We hope you feel better soon! Print Language: FILIPINO - Post Discharge Activity Discharge - Discharge Information Problems reviewed: Yes Clinical Impression/Diagnosis: Vertigo, Weakness Peripheral vertigo Qualifiers: Laterality: unspecified laterality Qualified Code(s): H81.399 - Other peripheral vertigo, unspecified ear Condition: Improved Disposition: HOME - Additional Discharge Information Prescriptions: Meclizine HCl 25 mg PO PRN 10 Days #10 tab.chew - Follow up/Referral Referrals: Sebas Garrett MD [Staff Physician] - Bernabe Schneider MD [Primary Care Provider] - Cheikh Slade MD [Staff Physician] - - Patient Discharge Instructions Patient Printed Discharge Instructions: Vertigo (Alternative Therapy), Benign Paroxysmal Positional Vertigo, DI for Vertigo Additional Instructions: Please follow up with your primary doctor in the next 3 days. Come back to the ER immediately if you experience any pain, worsening of your symptoms, or any other concerns. Thank you for coming to the [facility] ER. We hope you feel better soon! Print Language: FILIPINO - Post Discharge Activity
[2018-11-29] MEDS ORDERED: METOCLOPRAMIDE HCL INJECTION 10 MG/2 ML VIAL ONE (05:00)
[2018-11-29] MEDS ORDERED: MECLIZINE HCL 25 MG TABLET (FP) ONE (05:00)
[2018-11-29 05:32] LABS: BASO % 0.3 % (0-2.0); EOS % 1.6 % (0-4.5); HEMATOCRIT 38.9 % (32.4-45.2); HEMOGLOBIN 13.3 GM/dL (10.7-15.3); MCH 29.7 pg (25.7-33.7); MCHC 34.2 g/dl (32.0-36.0); MEAN PLT VOLUME 7.8 fl (7.5-11.1); MONO % 5.1 % (3.8-10.2); PLATELET COUNT 218 K/MM3 (134-434); RBC 4.47 M/mm3 (3.60-5.2); RDW 12.6 % (11.6-15.6); WHITE BLOOD COUNT 13.3 K/mm3 (4.0-10.0)
[2018-11-29 05:56] LABS: ALBUMIN 3.6 g/dl (3.4-5.0); BILIRUBIN,TOTAL 0.3 mg/dL (0.2-1); BLOOD UREA NITROGEN 14.6 mg/dL (7-18); CALCIUM 8.9 mg/dL (8.5-10.1); CREATININE 0.7 mg/dL (0.55-1.3); TOT PROT 6.8 g/dl (6.4-8.2)
[2018-11-29 06:44] VITALS: BP 117/61; PULSE 93
--- NOTE | 2018-11-29 10:43 | EKG ---
Test Reason : Blood Pressure : / mmHG Vent. Rate : 073 BPM Atrial Rate : 073 BPM P-R Int : 228 ms QRS Dur : 084 ms QT Int : 390 ms P-R-T Axes : 045 072 033 degrees QTc Int : 429 ms SINUS RHYTHM WITH 1ST DEGREE A-V BLOCK OTHERWISE NORMAL ECG NO PREVIOUS ECGS AVAILABLE Confirmed by MILTON FABIAN, MATT ([id number]) on 11/29/2018 10:43:16 AM Referred By: Confirmed By:MATT ROSE MD
== END 2018-11-29 06:44 | disposition home or self-care (01) ==
LOC: JER 04:11
PROC: 3E0337Z Introduction of Electrolytic and Water Balance Substance into Peripheral Vein, Percutaneous Approach (ICD-10-PCS; principal; 2018-11-29)
PROC: 3E033GC Introduction of Other Therapeutic Substance into Peripheral Vein, Percutaneous Approach (ICD-10-PCS; 2018-11-29)
DX: H81.399 Other peripheral vertigo, unspecified ear (principal); G43.909 Migraine, unspecified, not intractable, without status migrainosus; F41.9 Anxiety disorder, unspecified
CPT/HCPCS: 36415; 70450-TC; 80053; 84484; 84703; 85025; 93005; 93010; 99283-25; J7030

== ENCOUNTER 2019-04-11 09:03 | Emergency (ER) | payer OTHER ==
[2019-04-11 09:09] VITALS: BMI 25.2
[2019-04-11 10:11] LABS: BASO % 0.3 % (0-2.0); EOS % 1.4 % (0-4.5); HEMATOCRIT 38.6 % (32.4-45.2); HEMOGLOBIN 13.2 GM/dL (10.7-15.3); LYMPH % 22.1 % (8-40); MCH 29.7 pg (25.7-33.7); MCHC 34.2 g/dl (32.0-36.0); MEAN CELL VOLUME 86.7 fl (80-96); MEAN PLT VOLUME 8.2 fl (7.5-11.1); MONO % 4.6 % (3.8-10.2); NEUT % 71.6 % (42.8-82.8); PLATELET COUNT 242 K/MM3 (134-434); RBC 4.46 M/mm3 (3.60-5.2); WHITE BLOOD COUNT 11.1 K/mm3 (4.0-10.0)
[2019-04-11 10:12] LABS: URINE APPEARANCE CLEAR; URINE BILIRUBIN NEGATIVE (NEGATIVE); URINE COLOR YELLOW; URINE GLUCOSE (UA) NEGATIVE (NEGATIVE); URINE KETONE NEGATIVE (NEGATIVE); URINE LEUK ESTERASE NEGATIVE (NEGATIVE); URINE NITRITE NEGATIVE (NEGATIVE); URINE PROTEIN NEGATIVE (NEGATIVE); URINE UROBILINOGEN 0.2 mg/dL (0.2-1.0)
--- NOTE | 2019-04-11 10:39 | PDOC ---
History of Present Illness - General Chief Complaint: Vaginal Bleeding Stated Complaint: 8 WK PREG / BLEEDING Time Seen by Provider: 04/11/19 09:15 History Source: Patient Exam Limitations: No Limitations - History of Present Illness Travel History: No Initial Comments: 04/11/19 10:55 38-year-old female currently 8 weeks presents the ED with intermittent bleeding for the past week. Patient states bleeding has subsided and only noted when she wipes in the morning or after urination. Patient has mild left suprapubic cramping and states has not had an ultrasound as of yet and is due for one on the . Patient states has no urinary complaints, nausea, diarrhea , or fever. Timing/Duration: reports: changing over time Quality: reports: mild, cramping Abdominal Pain Onset Location: reports: suprapubic Pain Radiation: reports: no radiation Activities at Onset: reports: none Aggravating Factors: improves with: None Alleviating Factors: improves with: None Past History - Travel Traveled outside of the country in the last 30 days: No Close contact w/someone who was outside of country & ill: No - Past Medical History Allergies/Adverse Reactions: Allergies Allergy/AdvReac Type Severity Reaction Status Date / Time No Known Allergies Allergy Verified 04/11/19 09:05 Home Medications: Ambulatory Orders Ergocalciferol [Vitamin D2] 50,000 unit PO WEEKLY 11/29/18 Meclizine HCl 25 mg PO PRN 10 Days #10 tab.chew 11/29/18 Sumatriptan Succinate [Imitrex -] 50 mg PO ASDIR PRN 11/29/18 Terbinafine HCl 250 mg PO DAILY 11/29/18 Asthma: No Cancer: No Cardiac Disorders: No COPD: No Diabetes: No HTN: No Seizures: No Thyroid Disease: No Other medical history: gravide - Reproductive History Is Patient Now?: Yes (#): 4 Para: 3 Therapeutic (s) & number: No Spontaneous : 0 - Psycho Social/Smoking Cessation Hx Smoking History: Never smoked Have you smoked in the past 12 months: No Hx Alcohol Use: No Drug/Substance Use Hx: No Substance Use Type: None Hx Substance Use Treatment: No Patient Lives Alone: No Lives with/in: spouse/SO Review of Systems - Review of Systems Able to Perform ROS?: Yes Constitutional: No: Symptoms Reported HEENTM: No: Symptoms Reported Respiratory: No: Symptoms reported Cardiac (ROS): No: Symptoms Reported ABD/GI: Yes: Abdominal cramping : Yes: Discharge Musculoskeletal: No: Symptoms Reported Integumentary: No: Symptoms Reported Neurological: No: Symptoms reported *Physical Exam - Vital Signs Last Vital Signs Temp Pulse Resp BP Pulse Ox 98.2 F 89 16 105/47 L 99 04/11/19 09:05 04/11/19 09:05 04/11/19 09:05 04/11/19 09:05 04/11/19 09:05 - Physical Exam General Appearance: Yes: Nourished, Appropriately Dressed. No: Apparent Distress HEENT: negative: Pale Conjunctivae Neck: positive: Normal Thyroid, Supple Respiratory/Chest: positive: Lungs Clear, Normal Breath Sounds. negative: Respiratory Distress, Accessory Muscle Use Cardiovascular: positive: Regular Rhythm, Regular Rate. negative: Murmur Female Pelvic Exam: positive: cervical os closed, vaginal bleeding (scant light brown). negative: CMT Gastrointestinal/Abdominal: positive: Soft, Tenderness (left suprapubic) Musculoskeletal: negative: CVA Tenderness Extremity: positive: Normal Inspection Integumentary: positive: Normal Color, Warm, Moist Neurologic: positive: Motor Strength 5/5 (Ambulatory) ED Treatment Course - LABORATORY CBC & Chemistry Diagram: 04/11/19 09:20 04/11/19 09:20 - RADIOLOGY Radiology Studies Ordered: Category Date Time Status <14WKS US [US] Stat Ultrasound 04/11/19 09:36 Ordered Medical Decision Making - Medical Decision Making 04/11/19 10:58 Chief complaint: Vaginal bleeding intermittently for the past week now subsided since yesterday and only noted with wiping after urination patient also states has had mild intermittent left suprapubic cramping and has not had an ultrasound yet for this which she states is about 8 weeks Exam: Patient left suprapubic tenderness on exam. Vital signs stable. Scant light brown discharge in vaginal vault. Plan: Labs, urine and ultrasound ordered patient offered Motrin but states pain is not severe 04/11/19 11:39 Laboratory Tests 04/11/19 04/11/19 04/11/19 09:20 09:20 09:20 WBC 11.1 H Hgb 13.2 Hct 38.6 Absolute Neuts (auto) 7.9 Sodium 138 Potassium 4.1 Chloride 102 Carbon Dioxide 27 Anion Gap 8 BUN 12.3 Creatinine 0.6 Est GFR (CKD-EPI)NonAf 117.26 Random Glucose 108 H Calcium 9.1 Total Bilirubin 0.4 AST 17 ALT 18 Alkaline Phosphatase 66 Total Protein 7.4 Albumin 3.9 Beta HCG, Quant 78925.4 Urine Ketones Negative Urine Nitrite Negative Urine Bilirubin Negative Ur Leukocyte Esterase Negative Blood Type Antibody Screen 04/11/19 09:20 WBC Hgb Hct Absolute Neuts (auto) Sodium Potassium Chloride Carbon Dioxide Anion Gap BUN Creatinine Est GFR (CKD-EPI)NonAf Random Glucose Calcium Total Bilirubin AST ALT Alkaline Phosphatase Total Protein Albumin Beta HCG, Quant Urine Ketones Urine Nitrite Urine Bilirubin Ur Leukocyte Esterase Blood Type O NEGATIVE Antibody Screen Negative Ultrasound shows 8 weeks 1 day with a heart rate of 168 bpm. Patient will require RhoGam prior to discharge. Discharge - Discharge Information Problems reviewed: Yes Clinical Impression/Diagnosis: Vaginal bleeding in Condition: Improved Disposition: HOME - Follow up/Referral - Patient Discharge Instructions Patient Printed Discharge Instructions: DI for Vaginal Bleeding During Additional Instructions: Follow-up with your [facility]. - Post Discharge Activity
[2019-04-11 10:52] LABS: ALBUMIN 3.9 g/dl (3.4-5.0); BILIRUBIN,TOTAL 0.4 mg/dL (0.2-1); BLOOD UREA NITROGEN 12.3 mg/dL (7-18); CALCIUM 9.1 mg/dL (8.5-10.1); CREATININE 0.6 mg/dL (0.55-1.3); POTASSIUM 4.1 mmol/L (3.5-5.1); TOT PROT 7.4 g/dl (6.4-8.2)
[2019-04-11 11:35] VITALS: BP 116/67; PULSE 90; TEMP 98
[2019-04-11] MEDS ORDERED: RHO(D) IMMUNE GLOBULIN 1,500 UNIT DISP.SYRIN IM ONE (11:37)
[2019-04-11] MEDS ORDERED: ONDANSETRON *ODT* 4 MG TABLET ONE (12:43)
[2019-04-11] MEDS ORDERED: IBUPROFEN 600 MG TABLET (FP) PO ONE (12:43)
== END 2019-04-11 13:00 | disposition home or self-care (01) ==
LOC: JER 09:03
PROC: 3E023GC Introduction of Other Therapeutic Substance into Muscle, Percutaneous Approach (ICD-10-PCS; principal; 2019-04-11)
DX: O26.891 Other specified pregnancy related conditions, first trimester (principal); Z3A.08 8 weeks gestation of pregnancy; N93.9 Abnormal uterine and vaginal bleeding, unspecified
CPT/HCPCS: 36415; 76801-TC; 80053; 81003; 84702; 85025; 86850; 86900; 86901; 86999; 87086; 99282-25; J1561

== ENCOUNTER 2019-05-03 08:47 | Emergency (ER) | payer OTHER ==
[2019-05-03 09:06] VITALS: TEMP 98.2; BMI 25.3
[2019-05-03] MEDS ORDERED: SODIUM CHLORIDE 0.9% 1000 ML INFUS.BAG IV ONE (09:19)
--- NOTE | 2019-05-03 09:36 | PDOC ---
History of Present Illness - General Chief Complaint: Palpitations Stated Complaint: PRESSURE IN CHEST Time Seen by Provider: 05/03/19 09:13 History Source: Patient Exam Limitations: Language Barrier - History of Present Illness Initial Comments: Mily Cazares is a 38 yo F , LMP 11 weeks ago, w a hx of migraines and anxiety who presents to the [facility] er because she feels like her heart has been beating faster than usual and is concerned. She states she occasionally gets a shart sensation in the side of her chest which improves when she applies muscle relaxing cream. She denies having any SOB. She states that she use to take an anxiety medication before but she stopped now that she is and she feels as if her anxiety has been acting up. LMP: 11 weeks ago PCP: Bernabe Schneider OB: Catrina Thrasher PSH: None reported Allergies: NKA, NKDA Social Hx: Denies smoking, drinking, or other substance usage. 05/03/19 09:46 Past History - Past Medical History Allergies/Adverse Reactions: Allergies Allergy/AdvReac Type Severity Reaction Status Date / Time No Known Allergies Allergy Verified 05/03/19 08:59 Home Medications: Ambulatory Orders No122/Iron/Folic Acid [ Multi Tablet] 1 each PO DAILY 05/03/19 Asthma: No Cancer: No Cardiac Disorders: No COPD: No Diabetes: No HTN: No Seizures: No Thyroid Disease: No - Reproductive History (#): 4 Para: 3 Therapeutic (s) & number: No Spontaneous : 0 - Psycho Social/Smoking Cessation Hx Smoking History: Never smoked Have you smoked in the past 12 months: No Hx Alcohol Use: No Drug/Substance Use Hx: No Substance Use Type: None Hx Substance Use Treatment: No Review of Systems - Review of Systems Able to Perform ROS?: Yes Comments:: CONSTITUTIONAL: Absent: fever, no chills, no fatigue EYES: Absent: visual changes ENT: Absent: ear pain, no sore throat CARDIOVASCULAR: Present: Chest pain Absent: no palpitations RESPIRATORY: Absent: cough, no SOB GI: Present: Nausea Absent: abdominal pain, no vomiting, no constipation, no diarrhea GENITOURINARY: Absent: dysuria, no frequency, no hematuria MUSKULOSKELETAL: Absent: back pain, no arthralgia, no myalgia SKIN: Absent: rash NEURO: Absent: headache *Physical Exam - Vital Signs Last Vital Signs Temp Pulse Resp BP Pulse Ox 98.2 F 105 H 20 112/56 L 100 05/03/19 09:04 05/03/19 09:04 05/03/19 09:04 05/03/19 09:04 05/03/19 09:04 - Physical Exam GENERAL: Well-appearing, well-nourished. No apparent distress. HEENT: Normocephalic, atraumatic. PERRL, EOM intact. CARDIOVASCULAR: Tachycardic rate. Normal S1, S2. Regular rhythm. PULMONARY: No evidence of respiratory distress. Lungs clear to auscultation bilaterally. No wheezing, rales or rhonchi. ABDOMEN: Gravid uterus below the umbilicus. Soft, non-distended, non-tender. EXTREMITIES: Normal ROM in all four extremities. No gross deformities. SKIN: Warm, dry. No rash NEUROLOGICAL: No focal neurological deficits. ED Treatment Course - LABORATORY CBC & Chemistry Diagram: 05/03/19 09:30 05/03/19 09:30 Medical Decision Making - Medical Decision Making Mily Cazares is a 38 yo F , LMP 11 weeks ago, w a hx of migraines and anxiety who presents to the [facility] er because she feels like her heart has been beating faster than usual and is concerned. She states she occasionally gets a shart sensation in the side of her chest which improves when she applies muscle relaxing cream. She denies having any SOB. She states that she use to take an anxiety medication before but she stopped now that she is and she feels as if her anxiety has been acting up. Vital Signs Temp Pulse Resp BP Pulse Ox 98.2 F 105 H 20 112/56 L 100 05/03/19 09:04 05/03/19 09:04 05/03/19 09:04 05/03/19 09:04 05/03/19 09:04 DDx IBNLT: Anxiety, normal changes, dehydration, electrolyte/ metabolic disturbance Plan: Labs, EKG, US, re-assess. FHR: 162 ECHO: No focal wall motion abnormalities Labs: Leukocytosis - likely standard changes EKG: NS rate of 90, narrow complexes, normal axis, no hypertrophy, no ST elevations or depressions, Qtc 415, NH 192 Re-assessment: Patient feels much better after IV hydration and supportive care. She would like to go home and follow up with her PCP, OB and cards referral Dispo: Home with Ob, cardio, and PCP fu Discharge - Discharge Information Problems reviewed: Yes Clinical Impression/Diagnosis: Tachycardia Condition: Improved Disposition: HOME - Admission No - Follow up/Referral Referrals: Bernabe Schneider MD [Primary Care Provider] - Catrina Thrasher MD [Staff Physician] - Billy Arce MD [Staff Physician] - - Patient Discharge Instructions Patient Printed Discharge Instructions: DI for Tachycardia, A Survival Guide for Men Additional Instructions: You came into the ER with a fast heart rate which improved after receiving IV hydration. Please schedule follow up appointments with your regular doctor, your OB doctor , and the hospital pharmacist we are refrring you to in the next 3 days. Come back to the ER if you have chest pain, shortness of breath, or any other new or worsening concerns. Thank you for coming to the [facility] ER. We hope you feel better soon! Print Language: GERMAN - Post Discharge Activity
[2019-05-03 10:10] LABS: URINE APPEARANCE CLEAR; URINE BILIRUBIN NEGATIVE (NEGATIVE); URINE COLOR YELLOW; URINE GLUCOSE (UA) NEGATIVE (NEGATIVE); URINE KETONE NEGATIVE (NEGATIVE); URINE LEUK ESTERASE NEGATIVE (NEGATIVE); URINE NITRITE NEGATIVE (NEGATIVE); URINE PROTEIN NEGATIVE (NEGATIVE); URINE UROBILINOGEN 0.2 mg/dL (0.2-1.0)
[2019-05-03 10:11] LABS: BASO % 0.2 % (0-2.0); EOS % 0.4 % (0-4.5); HEMATOCRIT 35.3 % (32.4-45.2); HEMOGLOBIN 12.3 GM/dL (10.7-15.3); LYMPH % 14.9 % (8-40); MCH 29.8 pg (25.7-33.7); MCHC 34.9 g/dl (32.0-36.0); MEAN CELL VOLUME 85.1 fl (80-96); MEAN PLT VOLUME 7.7 fl (7.5-11.1); MONO % 3.1 % (3.8-10.2); NEUT % 81.4 % (42.8-82.8); PLATELET COUNT 247 K/MM3 (134-434); RBC 4.14 M/mm3 (3.60-5.2); RDW 13.1 % (11.6-15.6); WHITE BLOOD COUNT 12.3 K/mm3 (4.0-10.0)
--- NOTE | 2019-05-03 10:11 | PDOC ---
Attending Attestation - Resident Resident Name: Naveed Gallagher - ED Attending Attestation I have performed the following: I have examined & evaluated the patient, The case was reviewed & discussed with the resident, I agree w/resident's findings & plan, Exceptions are as noted - HPI HPI: 05/03/19 10:09 38yo at around 11 weeks preg with palpitations. Pt states she has felt tachycardic and palpitations. No pleuritic cp. States she has anxiety and stopped her meds when she found out she was . States last night she couldn't sleep because she just found out her prior boss and she states woke up multiple times last night with tachycardia and thinking about her boss. States she has seen a chute tapper and had an ekg, scheduled for an echo on may 17. Pt denies cp. No abd pain. No n/v/d. States she has never had palpitations with prior pregnancies in the past. 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
[2019-05-03 11:06] LABS: ALBUMIN 3.4 g/dl (3.4-5.0); BILIRUBIN,TOTAL 0.5 mg/dL (0.2-1); BLOOD UREA NITROGEN 5.7 mg/dL (7-18); CALCIUM 9.2 mg/dL (8.5-10.1); CREATININE 0.5 mg/dL (0.55-1.3); POTASSIUM 3.6 mmol/L (3.5-5.1); TOT PROT 6.9 g/dl (6.4-8.2)
[2019-05-03 12:12] VITALS: BP 114/67; PULSE 81
--- NOTE | 2019-05-04 12:50 | EKG ---
Test Reason : Blood Pressure : / mmHG Vent. Rate : 090 BPM Atrial Rate : 090 BPM P-R Int : 192 ms QRS Dur : 084 ms QT Int : 340 ms P-R-T Axes : 066 066 052 degrees QTc Int : 415 ms NORMAL SINUS RHYTHM WHEN COMPARED WITH ECG OF 29-NOV-2018 05:01, MS INTERVAL HAS DECREASED Confirmed by JOSIAH MCCONNELL MD ([id number]) on 05/04/2019 12:49:54 PM Referred By: Confirmed By:JOSIAH MCCONNELL MD
== END 2019-05-03 11:58 | disposition home or self-care (01) ==
LOC: JER 08:47 → SUPCPDRO 08:47 → JER 11:58
DX: O26.891 Other specified pregnancy related conditions, first trimester (principal); F41.9 Anxiety disorder, unspecified; R00.0 Tachycardia, unspecified; Z3A.11 11 weeks gestation of pregnancy
CPT/HCPCS: 36415; 76815; 80053; 81003; 84443; 84702; 85025; 86850; 86870; 86900; 86901; 86902; 93005; 93010; 93308; 99285-25; J7030

== ENCOUNTER 2019-11-20 13:37 | Inpatient (IN) | payer OTHER ==
[2019-11-20 15:06] LABS: BASO % 0.3 % (0-2.0); EOS % 0.5 % (0-4.5); HEMATOCRIT 35.2 % (32.4-45.2); HEMOGLOBIN 12.6 GM/dL (10.7-15.3); LYMPH % 19.4 % (8-40); MCH 31.2 pg (25.7-33.7); MCHC 35.7 g/dl (32.0-36.0); MEAN CELL VOLUME 87.3 fl (80-96); MEAN PLT VOLUME 7.4 fl (7.5-11.1); NEUT % 74.8 % (42.8-82.8); PLATELET COUNT 200 K/MM3 (134-434); RBC 4.03 M/mm3 (3.60-5.2); RDW 13.7 % (11.6-15.6); WHITE BLOOD COUNT 10.9 K/mm3 (4.0-10.0)
[2019-11-20 15:08] VITALS: BMI 26.4
[2019-11-20 15:14] LABS: INR 0.95 (0.83-1.09); PROTHROMBIN TIME (PATIENT) 11.2 SEC (9.7-13.0)
[2019-11-20 15:40] LABS: BLOOD UREA NITROGEN 7.9 mg/dL (7-18); CALCIUM 8.5 mg/dL (8.5-10.1); CREATININE 0.6 mg/dL (0.55-1.3); POTASSIUM 4.3 mmol/L (3.5-5.1)
[2019-11-20] MEDS ORDERED: OXYTOCIN 30 UNITS in 0.9% NS 30 UNIT/500 ML INFUS.BAG IVPB ONE (15:52)
[2019-11-20] MEDS ORDERED: ELECTROLYTE-148 SOLN 1,000 ML IV SCH (16:15)
[2019-11-20] MEDS ORDERED: OXYTOCIN 30 UNITS in 0.9% NS 30 UNIT/500 ML INFUS.BAG IVPB SCH (16:15)
--- NOTE | 2019-11-20 17:42 | HP ---
Past Medical History - Primary Care Physician PCP:: Daniella Quiñonez - Admission Chief Complaint: 39 yrs , 40.2 weeks admitted for induction of labor due to post term pregn . History of Present Illness: pnc at [address] [place] [address] . Wt gain 6lbs panel : 03/29/19 O neg , Rhogam received in 04/11/19 . Hbsag neg, hep c nr, Hiv neg, tpallidum ab neg , rubella immune , sickle neg , g/c/ct neg, pap nilm hpv neg 08/08/19 1hr gtt 89. Quantiferon neg 10/22/19 36 wks panel : gbs neg, gc/ct neg , hiv neg , h/h 12.1/35.2 plt 195 early US 04/07/19 : 9.2 wks edc 11/18/19 Follow up US by [facility] for growth .Anatomy wnl . US 09/24/19 32.1 wks vx, normal growth & fluid normal NT /AFP/NIPT neg she took influenza vaccine on 03/29/19 History Source: Patient, Medical Record Limitations to Obtaining History: No Limitations - Past Medical History DIRECTOR PROCESS: Yes: Migraine (no meds now) Cardiovascular: No: HTN, Murmur Pulmonary: No: Asthma Gastrointestinal: No: Other (none known) Hepatobiliary: No: Hepatitis B, Hepatitis C Renal/: No: UTI ...: 5 ...Para: 3 (G2 11/12/09 7'10", G2 05/04/11 : 7'11", G3 12/14/2010 : , 9'10" all at [facility] ) ...Term: 3 ...: 0 ...Spon : 1 (G1 11/13/2017 8 wks ) ...Induced : 0 ...Living Children: 3 ...Multiple Gestation: 0 ...LMP: 02/11/19 ... Weeks Gestation by Dates: 40.2 ...EDC by Dates: 11/18/19 ...EDC by Sono: 11/18/19 Infectious Disease: No: AIDS, HIV, STD's, Tuberculosis Psych: Yes: Anxiety. No: Addictions, Depression Endocrine: No: Diabetes Mellitus, Hyperthyroidism, Hypothyroidism - Past Surgical History Past Surgical History: Yes: None Hx Myomectomy: No Hx Transabdominal Cerclage: No - Smoking History Smoking history: Never smoked Have you smoked in the past 12 months: No - Alcohol/Substance Use Hx Alcohol Use: No History of Substance Use: reports: None - Social History ADL: Independent History of Recent Travel: No Home Medications - Allergies Allergies/Adverse Reactions: Allergies Allergy/AdvReac Type Severity Reaction Status Date / Time No Known Allergies Allergy Verified 11/20/19 15:48 - Home Medications Home Medications: Ambulatory Orders No122/Iron/Folic Acid [ Multi Tablet] 1 each PO DAILY 05/03/19 Review of Systems - Review of Systems Constitutional: reports: No Symptoms, Weakness HENT: reports: No Symptoms Neck: reports: No Symptoms Cardiovascular: reports: No Symptoms Respiratory: reports: No Symptoms Gastrointestinal: reports: No Symptoms Genitourinary: reports: No Symptoms Breasts: reports: No Symptoms Reported Musculoskeletal: reports: No Symptoms Integumentary: reports: No Symptoms Neurological: reports: No Symptoms Endocrine: reports: No Symptoms Hematology/Lymphatic: reports: No Symptoms Psychiatric: reports: No Symptoms Physical Exam - Maternity Vital Signs: Vital Signs Temperature 98.9 F 11/20/19 16:00 Pulse Rate 90 11/20/19 17:00 Respiratory Rate 20 11/20/19 17:00 Blood Pressure 140/83 11/20/19 17:00 O2 Sat by Pulse Oximetry (%) Selected Entries 11/20/19 13:37 Weight 169 lb Constitutional: Yes: Well Nourished, No Distress Eyes: Yes: WNL HENT: Yes: WNL Neck: Yes: WNL Cardiovascular: Yes: WNL Lungs: Clear to auscultation Breast(s): Yes: WNL - Abdominal Exam/OB Fundal Height: 38 Number of Fetuses: Single Presentation: Vertex Contractions: Yes Regularity: Regular (3-6 min) Intensity: Mild/Mod Monitor Mode: External Heart Rate (range): 130 Heart Rate Location: [facility] Category: I Accelerations: Non-Uniform Decelerations: None - Vaginal Exam/OB Vaginal Bleeding: No Dilatation (cm): 2 Effacement (%): 70 Amniotic Membrane Status: Intact Presentation: Vertex/Position Station: -2 - Physical Exam Extremities: Yes: WNL Edema: LLE: 1+, RLE: 1+ Integumentary: Yes: Tattoos Deep Tendon Reflex Grade: Normal +2 ...Motor Strength: WNL Psychiatric: Yes: WNL - Labs Lab Results: CBC, BMP 11/20/19 14:30 11/20/19 14:30 Laboratory Tests 11/20/19 11/20/19 11/20/19 14:30 14:30 14:30 PT with INR 11.20 INR 0.95 PTT (Actin FS) 26.0 Syphilis Serology Non-reactive Blood Type O NEGATIVE Antibody Screen Negative Problem List - Problems (1) Post term over 40 weeks Code(s): O48.0 - POST-TERM (2) Elective induction of labor planned Code(s): JZO2199 - (3) AMA (advanced maternal age) multigravida 35+ Code(s): O09.529 - SUPERVISION OF ELDERLY MULTIGRAVIDA, UNSPECIFIED TRIMESTER Qualifiers: Trimester: third trimester Qualified Code(s): O09.523 - Supervision of elderly multigravida, third trimester Assessment/Plan 39 yrs (AMA), , 40.2 weeks, cervix fvorable for induction, gbs neg Pitocin induction begun. anticipate vag delivery labor analgesia , prefers stadol + phenrgan iv
[2019-11-20] MEDS ORDERED: BUTORPHANOL TARTRATE 1 MG/ML VIAL IVPUSH ONE (18:27)
[2019-11-20] MEDS ORDERED: BUTORPHANOL TARTRATE 1 MG/ML VIAL ONE (18:27)
[2019-11-20] MEDS ORDERED: PROMETHAZINE HCL 25 MG/1 ML VIAL IVPUSH ONE (18:27)
[2019-11-20] MEDS ORDERED: PROMETHAZINE HCL 25 MG/1 ML VIAL ONE (18:27)
--- NOTE | 2019-11-20 18:27 | PN ---
Progress Note, Labor Vaginal Exam #1 Labor Exam Date: 11/20/19 Labor Exam Time: 18:20 Heart Rate (range): 130 Dilatation: 6 Effacement (%): 80 Amniotic Membrane Status: Ruptured (AROM clear) Presentation: Vertex/Position Station: -1 (-1/0) Remarks: fhr cat-1 uc 2-3 min pitocin 3ml/hr pt requests pain meds . rx stadol1 mg + phemrgan 25 mg iv stat Selected Entries 11/20/19 18:00 Temperature 98.9 F Pulse Rate 95 H Blood Pressure 135/83 Vaginal Exam #2 Labor Exam Date: 11/20/19 Labor Exam Time: 19:05 Heart Rate (range): 120-110 Dilatation: 10 Effacement (%): 100 Amniotic Membrane Status: Ruptured Presentation: Vertex/Position Station: +3 Remarks: uc q 2min fhrcat-1 pt pushing
[2019-11-20] MEDS ORDERED: OXYTOCIN 20 UNITS in 0.9% NS 20 UNIT/1,000 ML INFUS.BAG IV ONE (19:11)
[2019-11-20] MEDS ORDERED: METHYLERGONOVINE MALEATE 0.2 MG/1 ML AMP IM PRN (19:32)
[2019-11-20] MEDS ORDERED: BENZOCAINE 28 GM HEMORRHOIDAL OINTMENT TP PRN (19:32)
[2019-11-20] MEDS ORDERED: BISACODYL 10 MG SUPP.RECT RC PRN (19:32)
[2019-11-20] MEDS ORDERED: BENZOCAINE 20% 57 GM BOTTLE TP PRN (19:32)
[2019-11-20] MEDS ORDERED: WITCH HAZEL 50% (TUCKS) 40 PAD/JAR PAD TP PRN (19:32)
[2019-11-20] MEDS ORDERED: oxyCODONE HCL 5 MG TABLET PO PRN (19:32)
[2019-11-20] MEDS ORDERED: OXYTOCIN 20 UNITS in 0.9% NS 20 UNIT/1,000 ML INFUS.BAG IV SCH (19:45)
--- NOTE | 2019-11-20 20:02 | PN ---
Delivery - Delivery Vaginal Delivery: No Problems, Spontaneous (pt delievered spontaneously vx position, compound presentation post hand presenting anterior to head post shoulder delievered 1st, after flexing arm , after delivery of head, . 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 [id number] + phentgan 25 mg iv stat was given one dose intrapartum course uneventful
[2019-11-20] MEDS: IBUPROFEN 600 MG TABLET (FP) PO PRN (23:00)
[2019-11-20] MEDS: ACETAMINOPHEN 325 MG TABLET (FP) PO PRN (23:06)
[2019-11-21 08:35] LABS: BASO % 0.3 % (0-2.0); EOS % 2.1 % (0-4.5); HEMATOCRIT 32.4 % (32.4-45.2); HEMOGLOBIN 11.4 GM/dL (10.7-15.3); MCH 30.8 pg (25.7-33.7); MCHC 35.3 g/dl (32.0-36.0); MEAN CELL VOLUME 87.4 fl (80-96); MONO % 5.9 % (3.8-10.2); NEUT % 72.7 % (42.8-82.8); PLATELET COUNT 179 K/MM3 (134-434); RBC 3.71 M/mm3 (3.60-5.2); RDW 13.6 % (11.6-15.6); WHITE BLOOD COUNT 13.2 K/mm3 (4.0-10.0)
--- NOTE | 2019-11-21 08:56 | PN ---
Post Progress Note - Subjective Subjective: c/o cramps Post Day: 1 Type of Delivery: Vital Signs: Vital Signs Temperature 97.9 F 11/21/19 05:42 Pulse Rate 90 11/21/19 05:42 Respiratory Rate 18 11/21/19 05:42 Blood Pressure 102/58 L 11/21/19 05:42 O2 Sat by Pulse Oximetry (%) 100 11/20/19 20:15 Breast Exam: Yes: Soft, Other (BF ). No: Engorged Uterus: Yes: Fundus Firm, Fundus below umbilicus, Non-tender Lochia: Yes: Rubra Lochia, amount: Moderate Extremities: Yes: Calves non-tender Perineum: Yes: Intact Activity: Ambulating - Labs Labs: CBC WBC 13.2 K/mm3 (4.0-10.0) H 11/21/19 08:16 RBC 3.71 M/mm3 (3.60-5.2) 11/21/19 08:16 Hgb 11.4 GM/dL (10.7-15.3) 11/21/19 08:16 Hct 32.4 % (32.4-45.2) 11/21/19 08:16 MCV 87.4 fl (80-96) 11/21/19 08:16 MCH 30.8 pg (25.7-33.7) 11/21/19 08:16 MCHC 35.3 g/dl (32.0-36.0) 11/21/19 08:16 RDW 13.6 % (11.6-15.6) 11/21/19 08:16 Plt Count 179 K/MM3 (134-434) 11/21/19 08:16 MPV 7.0 fl (7.5-11.1) L 11/21/19 08:16 Absolute Neuts (auto) 9.6 K/mm3 (1.5-8.0) H 11/21/19 08:16 Neutrophils % 72.7 % (42.8-82.8) 11/21/19 08:16 Lymphocytes % 19.0 % (8-40) 11/21/19 08:16 Monocytes % 5.9 % (3.8-10.2) 11/21/19 08:16 Eosinophils % 2.1 % (0-4.5) D 11/21/19 08:16 Basophils % 0.3 % (0-2.0) 11/21/19 08:16 Nucleated RBC % 0 % (0-0) 11/21/19 08:16 Problem List - Problems (1) Post term over 40 weeks Code(s): O48.0 - POST-TERM (2) Elective induction of labor planned Code(s): [id number] - (3) AMA (advanced maternal age) multigravida 35+ Code(s): O09.529 - SUPERVISION OF ELDERLY MULTIGRAVIDA, UNSPECIFIED TRIMESTER Qualifiers: Trimester: third trimester Qualified Code(s): O09.523 - Supervision of elderly multigravida, third trimester (4) Normal vaginal delivery Code(s): O80 - ENCOUNTER FOR FULL-TERM UNCOMPLICATED DELIVERY (5) Encounter for care after hospital delivery Code(s): Z39.2 - ENCOUNTER FOR ROUTINE FOLLOW-UP Assessment/Plan stable. pp cbc pending. discharge tomorrow.
[2019-11-21] MEDS: PRENATAL VITAMINS W/ FOLIC ACID TABLET (FP) PO SCH (09:16)
[2019-11-21] MEDS: FERROUS SO4 325 MG TABLET (FP) PO SCH ×2 (09:17→17:54)
[2019-11-21] MEDS: IBUPROFEN 600 MG TABLET (FP) PO PRN (20:11)
[2019-11-21] MEDS: ACETAMINOPHEN 325 MG TABLET (FP) PO PRN (20:12)
[2019-11-21] MEDS ORDERED: SENNOSIDES/DOCUSATE COMBO (SENNA PLUS) TABLET (UD) PO PRN (22:00)
--- NOTE | 2019-11-22 08:19 | DS ---
Physical Examination Vital Signs: Vital Signs Temperature 98.6 F 11/21/19 22:00 Pulse Rate 77 11/21/19 22:00 Respiratory Rate 18 11/21/19 22:00 Blood Pressure 126/79 11/21/19 22:00 O2 Sat by Pulse Oximetry (%) 100 11/20/19 20:15 Constitutional: Yes: Well Nourished, No Distress, Calm Eyes: Yes: WNL, Conjunctiva Clear, EOM Intact HENT: Yes: WNL, Atraumatic, Normocephalic Neck: Yes: WNL, Supple, Trachea Midline Cardiovascular: Yes: WNL, Regular Rate and Rhythm Respiratory: Yes: WNL, Regular, CTA Bilaterally Gastrointestinal: Yes: WNL, Normal Bowel Sounds Musculoskeletal: Yes: WNL Extremities: Yes: WNL Edema: No Integumentary: Yes: WNL Neurological: Yes: WNL, Alert, Oriented ...Motor Strength: WNL Psychiatric: Yes: WNL Labs: CBC, BMP 11/21/19 08:16 11/20/19 14:30 Discharge Summary Problems reviewed: Yes Reason For Visit: INDUCTION OF LABOR Current Active Problems AMA (advanced maternal age) multigravida 35+ (Acute) Elective induction of labor planned (Acute) Encounter for care after hospital delivery (Acute) Normal vaginal delivery (Acute) Post term over 40 weeks (Acute) Hospital Course: Patient presented for IOL for 40 week She had an uncomplicated She met all milestones She was discharged home in stable condition Shira Ruiz MD Condition: Stable - Instructions Diet, Activity, Other Instructions: Post Instructions DIET: Continue good diet high in protein, calcium, and iron rich foods. Drink at least eight (8) glasses of water daily in addition to other fluids. ___ Regular diet MEDICATIONS: Continue vitamins and iron as previously directed. Motrin and Tylenol may be taken for minor discomfort. ACTIVITY: Mild to moderate exercise may be started in two (2) weeks. Take frequent rest periods. Resume normal activity after six (6) week check up. WOUND CARE OF OPERATIVE SITE: Continue use of perineal bottle until vaginal discharge stops. Keep area clean. Shower daily. Keep abdominal wound dry. Report any drainage or redness to physician. Tub baths, tampons and douches are not permitted for [address] Breast feeding & or Bottle feeding BREAST CARE: (For those that are not ): If engorgement occurs: Wear tight fitting bra. Take Tylenol or Motrin for pain. Apply cold packs (ice in bags to each breast ) FAMILY PLANNING: There are many control alternatives to pursue and they should be discussed at your first office visit. You may resume sexual activity after your six (6) week check up. (Remember, breast feeding is not a contraceptive) NEXT PHYSICIAN APPOINTMENT: Be certain to call for a three (3) week appointment, unless otherwise directed. Call Clinic or got to Emergency Dept if you have any of the following: Heavy vaginal bleeding Painful urination Leg pain Unusual odor noted to vaginal bleeding High fever Red streaking noted on breast Referrals: Daniella Quiñonez MD [Staff Physician] - Disposition: HOME - Home Medications Comprehensive Discharge Medication List: Ambulatory Orders No122/Iron/Folic Acid [ Multi Tablet] 1 each PO DAILY 05/03/19 Acetaminophen [Tylenol .Regular Strength -] 650 mg PO Q3H PRN tablet 11/21/19 Ferrous Sulfate [Feosol] 325 mg PO DAILY #30 tab 11/21/19 Ibuprofen [Motrin -] 600 mg PO Q4H PRN #30 tablet 11/21/19 Vitamins (Sjr) - 1 tab PO DAILY #30 tablet 11/21/19
[2019-11-22] MEDS: FERROUS SO4 325 MG TABLET (FP) PO SCH (09:06)
[2019-11-22] MEDS: PRENATAL VITAMINS W/ FOLIC ACID TABLET (FP) PO SCH (09:06)
[2019-11-22 09:11] VITALS: BP 124/81; PULSE 83; TEMP 98
== END 2019-11-22 12:25 | disposition home or self-care (01) | DRG 560 ==
LOC: JLDR 13:37 → J3W 20:41
PROVIDERS: ADMIT Obstetrics & Gynecology; ATTEND Obstetrics & Gynecology
PROC: 10E0XZZ Delivery of Products of Conception, External Approach (ICD-10-PCS; principal; 2019-11-20)
PROC: 3E033VJ Introduction of Other Hormone into Peripheral Vein, Percutaneous Approach (ICD-10-PCS; 2019-11-20)
DX: O48.0 Post-term pregnancy (principal); Z3A.40 40 weeks gestation of pregnancy; Z37.0 Single live birth; Z86.59 Personal history of other mental and behavioral disorders; Z86.69 Personal history of other diseases of the nervous system and sense organs
CPT/HCPCS: 36415; 59409; 80048; 85025; 85461; 85610; 85730; 86780; 86850; 86900; 86901; 86999; U0003

== ENCOUNTER 2019-11-25 02:09 | Emergency (ER) | payer OTHER ==
[2019-11-25 02:16] VITALS: PULSE 92; TEMP 98; BMI 26.4
--- NOTE | 2019-11-25 02:22 | PDOC ---
Attending Attestation - Resident Resident Name: Jessica Copeland - ED Attending Attestation I have performed the following: I have examined & evaluated the patient, The case was reviewed & discussed with the resident, I agree w/resident's findings & plan - HPI HPI: 12/01/19 01:51 Pt comes with headaches since 10PM; she is 5 days post . Pt states that she had been suffering with GANNON since the and that this is nothing different no nausea, no vision no hearing no other symptoms Pt is afebrile and she is able to eat and she has no neuro deficits. BP stable no hx of gestation DM or HTN - Physicial Exam PE: 12/01/19 02:01 Normal exam. Normal neuro exam agree with resident exam - Medical Decision Making 11/25/19 05:[address] now, as she feels better after fioricet Pt is stable to go home Discharge - Discharge Information Problems reviewed: Yes Clinical Impression/Diagnosis: Headache Condition: Stable Disposition: HOME - Additional Discharge Information Prescriptions: Butalb/Acetaminophen/Caffeine [Fioricet 50-300-40 mg Capsule] 1 each PO Q6H #14 capsule - Follow up/Referral - Patient Discharge Instructions Patient Printed Discharge Instructions: DI for Headache Additional Instructions: You were seen in the ER for complaints of headache You had labwork that was normal You deferred a head CT at this time as you felt improved after medications. Please follow up with your Family Doctor within 1 week. You have a prescription for Fioricet and you should take this as prescribed. Return to the ER immediately if you experience worsening headache, changes in vision or hearing, numbness or tingling or any other concerning symptoms. - Post Discharge Activity
--- NOTE | 2019-11-25 02:29 | PDOC ---
History of Present Illness - General Chief Complaint: Headache Stated Complaint: HEADACHE Time Seen by Provider: 11/25/19 02:20 - History of Present Illness Initial Comments: 11/25/19 03:41 5 days post headaches since udring preg continued today started at 10pm no nausea, no vision no hearing no other symptoms BP stable no hx of gestation DM or HTN 11/25/19 05:[address] now, as she feels better after fiorevet Past History - Medical History Allergies/Adverse Reactions: Allergies Allergy/AdvReac Type Severity Reaction Status Date / Time No Known Allergies Allergy Verified 11/25/19 02:16 Home Medications: Ambulatory Orders No122/Iron/Folic Acid [ Multi Tablet] 1 each PO DAILY 05/03/19 Acetaminophen [Tylenol .Regular Strength -] 650 mg PO Q3H PRN tablet 11/21/19 Ferrous Sulfate [Feosol] 325 mg PO DAILY #30 tab 11/21/19 Ibuprofen [Motrin -] 600 mg PO Q4H PRN #30 tablet 11/21/19 Vitamins (Sjr) - 1 tab PO DAILY #30 tablet 11/21/19 Butalb/Acetaminophen/Caffeine [Fioricet 50-300-40 mg Capsule] 1 each PO Q6H #14 capsule 11/25/19 Asthma: No Cancer: No Cardiac Disorders: No COPD: No Diabetes: No HTN: No Seizures: No Thyroid Disease: No - Reproductive History Is Patient Now?: No (#): 4 Para: 3 Therapeutic (s) & number: No Spontaneous : 0 - Psycho-Social/Smoking History Smoking History: Never smoked Have you smoked in the past 12 months: No *Physical Exam - Vital Signs Last Vital Signs Temp Pulse Resp BP Pulse Ox 98 F 92 H 18 143/82 99 11/25/19 02:13 11/25/19 02:13 11/25/19 02:13 11/25/19 02:13 11/25/19 02:13 ED Treatment Course - LABORATORY CBC & Chemistry Diagram: 11/25/19 02:43 11/25/19 02:43 Discharge - Discharge Information Problems reviewed: Yes Clinical Impression/Diagnosis: Headache Condition: Stable Disposition: HOME - Additional Discharge Information Prescriptions: Butalb/Acetaminophen/Caffeine [Fioricet 50-300-40 mg Capsule] 1 each PO Q6H #14 capsule - Follow up/Referral - Patient Discharge Instructions Patient Printed Discharge Instructions: DI for Headache Additional Instructions: You were seen in the ER for complaints of headache You had labwork that was normal You deferred a head CT at this time as you felt improved after medications. Please follow up with your Family Doctor within 1 week. You have a prescription for Fioricet and you should take this as prescribed. Return to the ER immediately if you experience worsening headache, changes in vision or hearing, numbness or tingling or any other concerning symptoms. - Post Discharge Activity Vital Signs - Vital Signs Vital signs refused: No Blood Pressure: 131/82
--- OUTSIDE RECORDS SUMMARY | 2019-11-25 02:30 | XMS ---
:1980 Author Organization [facility] Care Team Providers Name Role Phone ENRIQUETA CARDOZA Unavailable Unavailable CINTHIA VELEZGHANSHYAM ELZBIETA Unavailable Unavailable Re-disclosure Warning The records that you are about to access may contain information from federally- assisted alcohol or drug abuse programs. If such information is present, then the following federally mandated warning applies: This information has been disclosed to you from records protected by federal confidentiality rules (42 CFR part 2). The federal rules prohibit you from making any further disclosure of this information unless further disclosure is expressly permitted by the written consent of the person to whom it pertains or as otherwise permitted by 42 CFR part 2. A general authorization for the release of medical or other information is NOT sufficient for this purpose. The Federal rules restrict any use of the information to criminally investigate or prosecute any alcohol or drug abuse patient.The records that you are about to access may contain highly sensitive health information, the redisclosure of which is protected by Article 27-F of the [facility] Public Health law. If you continue you may haveaccess to information: Regarding HIV / AIDS; Provided by facilities licensed or operated by the [facility] Office of Mental Health; or Provided by the [facility] Office for People With Developmental Disabilities. If such information is present, then the following [facility] mandated warning applies: This information has been disclosed to you from confidential records which are protected by state law. State law prohibits you from making any further disclosure of this information without the specific written consent of the person to whom it pertains, or as otherwise permitted by law. Any unauthorized further disclosure in violation of state law may result in a fine or detention sentence or both. A general authorization for the release of medical or other information is NOT sufficient authorization for further disclosure. Allergies and Adverse Reactions Type Description Substance Reaction Status Data Source(s ) No Known No Known Allergies No Known eCW3 ( [facility] Allergies Allergies [facility]) No Known No Known Allergies No Known eCW3 ( [facility] Allergies Allergies [facility]) No Known No Known Allergies No Known eCW3 ( [facility] Allergies Allergies [facility]) No Known No Known Allergies No Known eCW3 ( [facility] Allergies Allergies [facility]) No Known No Known Allergies No Known eCW3 ( [facility] Allergies Allergies [facility]) No Known No Known Allergies No Known eCW3 ( [facility] Allergies Allergies [facility]) No Known No Known Allergies No Known eCW3 ( [facility] Allergies Allergies [facility] Care) Encounters Encounter Providers Location Date Indications Data Source(s ) Outpatient [facility] 12/27/2018 [facility]3 [facility] 12[facility]00 [facility] A28 AM EDT - Care) 12/27/2018 12:00:00 AM EDT Outpatient [facility] 12/08/2018 eCW3 [facility] A28 AM EDT - Care) 12/08/2018 12:00:00 AM EDT Outpatient [facility] 11/27/2018 eCW3 ([facility]00 [facility] A28 AM EDT - Care) 11/27/2018 12:00:00 AM EDT [facility] 11/13/2018 eCW 3 [facility] A28 AM EDT - Care) 11/13/2018 12:00:00 AM EDT Outpatient Attender: ELZBIETA Leon 11/03/2018 [facility] DANUTAAdmitter: AM EDT ELZBIETA RAECHODANTHONY DANUTAReferrer: ENRIQUETA CARDOZA Outpatient Attender: ELZBIETA Leon 10/30/2018 [facility]:46:00 [facility] DANUTAAdmitter: AM EDT ELZBIETA RAECHODANTHONY DANUTAReferrer: ENRIQUETA CARDOZA Outpatient [facility] 10/26/2018 eCW3 ([facility] 12:[facility]:00 [facility] A28 AM EDT - Care) 10/26/2018 12:00:00 AM EDT (CPE) Annual/CPE [facility] 10/19/2018 eCW3 [facility] 12[facility] A28 AM EDT - Care) 10/19/2018 12:00:00 AM EDT Outpatient [facility] 08/04/2018 eCW3 ([facility] 12[facility] A28 AM EDT - Care) 08/04/2018 12:00:00 AM EDT Immunizations Vaccine Date Status Description Data Source(s) New in 2011. IIV4 03/29/2019 completed eCW3 ([facility] 10:26:00 AM EST [facility] Care) New in 2011. IIV4 03/29/2019 completed eCW3 ([facility] 10:26:00 AM EST Health Care) New in 2011. IIV4 03/29/2019 completed eCW3 ([facility] 10:26:00 AM EST Health Care) New in 2011. IIV4 03/29/2019 completed eCW3 ([facility] 10:26:00 AM EST Health Care) IIV3. This vaccine code 02/06/2015 completed eCW3 ([facility] is one of two which 02:32:00 PM EST Healt h Care) replace CVX 15, influenza, split virus. IIV3. This vaccine code 02/06/2015 completed eCW3 ([facility] is one of two which 02:32:00 PM EST Healt [facility] Care) replace CVX 15, influenza, split virus. IIV3. This vaccine code 02/06/2015 completed eCW3 ([facility] replace [facility]X 15, influenza, split virus. IIV3. This vaccine code 02/06/2015 completed eCW3 ([facility] is one of two which 02:32:00 PM EST Healt [facility] Care) replace CVX 15, influenza, split virus. Hep A-Hep B 05/06/2014 completed eCW3 ([facility] 09:[facility] AM EST [facility]) Hep A-Hep B 05/06/2014 completed eCW3 ([facility] 09:17:00 AM EST [facility] Care) Hep A-Hep B 05/06/2014 completed eCW3 ([facility] 09:17:00 AM EST Health Care) Hep A-Hep B 05/06/2014 completed eCW3 ([facility] 09:17:00 AM EST Health Care) IIV3. This is one of 02/04/2014 completed eCW3 ([facility] two codes replacing CVX 03:06:00 PM EST H ealth Care) 15, which is being retired. IIV3. This is one of 02/04/2014 completed eCW3 ([facility] two codes replacing CVX 03:06:00 PM EST H ealth Care) 15, which is being retired. IIV3. This is one of 02/04/2014 completed eCW3 ([facility] two codes replacing CVX 03:06:00 PM EST H ealth Care) 15, which is being retired. IIV3. This is one of 02/04/2014 completed eCW3 ([facility] two codes replacing CVX 03:06:00 PM EST H ealth Care) 15, which is being retired. Hep A-Hep B 12/10/2013 completed eCW3 ([facility] 02:19:00 PM ED Health Care) Hep A-Hep B 12/10/2013 completed eCW3 ([facility] 02:19:00 PM ED Health Care) Hep A-Hep B 12/10/2013 completed eCW3 ([facility] 02:19:00 PM ED Health Care) Hep A-Hep B 12/10/2013 completed eCW3 ([facility] 02:19:00 PM EDT Health Care) Hep A-Hep B 10/15/2013 completed eCW3 ([facility] 03:57:00 PM ED Health Care) Hep A-Hep B 10/15/2013 completed eCW3 ([facility] 03:57:00 PM ED Health Care) Hep A-Hep B 10/15/2013 completed eCW3 ([facility] 03:57:00 PM ED Health Care) Hep A-Hep B 10/15/2013 completed eCW3 ([facility] [place] [facility] 03:57:00 PM [facility]) IIV3. This vaccine code 02/06/2013 completed eCW3 ([facility] is one of two which 02:33:21 PM EST Healt h Care) replace CVX 15, influenza, split virus. IIV3. This vaccine code 02/06/2013 completed eCW3 ([facility] is one of two which 02:33:21 PM EST Healt h Care) replace CVX 15, influenza, split virus. IIV3. This vaccine code 02/06/2013 completed eCW3 ([facility] is one of two which 02:33:21 PM EST Healt h Care) replace CVX 15, influenza, split virus. IIV3. This vaccine code 02/06/2013 completed eCW3 ([facility] is one of two which 02:33:21 PM EST Healt h Care) replace CVX 15, influenza, split virus. Tdap 10/02/2012 completed eCW3 [facility]dap 10/02/2012 completed eCW3 ([facility] 09:38:27 PM ED Health Care) Tdap 10/02/2012 completed eCW3 ([facility] 09:38:27 PM ED Health Care) Tdap 10/02/2012 completed eCW3 ([facility] 09:38:27 PM ED Health Care) Medications Medication Brand Start Product Dose Route Administrative Pharmacy [facility] Indications Reaction Description Data Name Date Form Instructions Instructions Source(s) Prenat .0 active e CW3 Vitamins al 2020 {tabl Vitamins ([facility] 28-0.8 MG Vitami 12:00: et} 28-0.8 MG R iver ns 00 AM Health 28-0.8 EDT Care) MG Prenat .0 active e CW3 Vitamins al 2020 {tabl Vitamins ([facility] 28-0.8 MG Vitami 12:00: et} 28-0.8 MG R iver ns 00 AM Health 28-0.8 EDT Care) MG 24 HR Slow .0 active Slow Fe 142 eCW 3 ferrous Fe 142 2020 {tabl (45 Fe) MG ([facility] sulfate 142 (45 12:00: et} [facility] MG Extended Fe) MG 00 AM Healt h Release EDT Care) Oral Tablet [Slow-Fe] Slow Fe 142 (45 Fe) MG 24 HR Slow .0 active Slow Fe 142 eCW 3 ferrous Fe 142 2020 {tabl (45 Fe) MG ([facility] sulfate 142 (45 12:00: et} [facility] MG Extended Fe) MG 00 AM Healt h Release EDT Care) Oral Tablet [Slow-Fe] Slow Fe 142 (45 Fe) MG Prenat .0 active e CW3 28-0.8 MG al 2020 {tabl 28-0.8 MG ([facility] 28-0.8 12:00: et} [facility] MG 00 AM Health EDT Care) Prenat .0 active e CW3 28-0.8 MG al 2020 {tabl 28-0.8 MG ([facility] 28-0.8 12:00: et} [facility] MG 00 AM Health EDT Care) Prenat .0 active e CW3 28-0.8 MG al 2020 {tabl 28-0.8 MG ([facility] 28-0.8 12:00: et} [facility] MG 00 AM Health EDT Care) Prenat .0 active e CW3 28-0.8 MG al 2020 {tabl 28-0.8 MG ([facility] 28-0.8 12:00: et} [facility] MG 00 AM Health EDT Care) Prenat .0 active e CW3 28-0.8 MG al 2020 {tabl 28-0.8 MG ([facility] 28-0.8 12:00: et} [facility] MG 00 AM Health EDT Care) Prenat .0 active e CW3 28-0.8 MG al 2019 {tabl 28-0.8 MG ([facility] 28-0.8 12:00: et} [facility] MG 00 AM Health EDT Care) Biotin 1 MG Biotin .0 suspend Biotin 1000 eCW3 Oral Tablet 1000 2018 {tabl ed MCG ([facility] Biotin 1000 MCG 12:00: et} [facility] MCG 00 AM Health EDT Care) Biotin 1 MG Biotin .0 suspend Biotin 1000 eCW3 Oral Tablet 1000 2018 {tabl ed MCG ([facility] Biotin 1000 MCG 12:00: et} [facility] MCG 00 AM Health EDT Care) Biotin 1 MG Biotin .0 suspend Biotin 1000 eCW3 Oral Tablet 1000 2018 {tabl ed MCG ([facility] Biotin 1000 MCG 12:00: et} [facility] MCG 00 AM Health EDT Care) Sumatriptan Sumatr .0 suspend Sumatr iptan eCW3 50 MG Oral iptan 2018 {tabl ed Succinate 50 ([facility] Tablet Succin 12:00: et_as MG [facility] Sumatriptan ate 50 00 AM _need Heal th Succinate MG EDT ed} Care) 50 MG Sumatriptan Sumatr .0 suspend Sumatr iptan eCW3 50 MG Oral iptan 2018 {tabl ed Succinate 50 ([facility] Tablet Succin 12:00: et_as MG [facility] Sumatriptan ate 50 00 AM _need Heal th Succinate MG EDT ed} Care) 50 MG Sumatriptan Sumatr .0 suspend Sumatr iptan eCW3 50 MG Oral iptan 2018 {tabl ed Succinate 50 ([facility] Tablet Succin 12:00: et_as MG [facility] Sumatriptan ate 50 00 AM _need Heal th Succinate MG EDT ed} Care) 50 MG Sumatriptan Sumatr .0 suspend Sumatr iptan eCW3 50 MG Oral iptan 2018 {tabl ed Succinate 50 ([facility] Tablet Succin 12:00: et_as MG [facility] Sumatriptan ate 50 00 AM _need Heal th Succinate MG EDT ed} Care) 50 MG Sumatriptan Sumatr .0 suspend Sumatr iptan eCW3 50 MG Oral iptan 2019 {tabl ed Succinate 50 ([facility] Tablet Succin 12:00: et_as MG [facility] Sumatriptan ate 50 00 AM _need Heal th Succinate MG EDT ed} Care) 50 MG Sumatriptan Sumatr .0 suspend Sumatr iptan eCW3 50 MG Oral iptan 2019 {tabl ed Succinate 50 ([facility] Tablet Succin 12:00: et_as MG [facility] Sumatriptan ate 50 00 AM _need Heal th Succinate MG EDT ed} Care) 50 MG Sumatriptan Sumatr .0 suspend Sumatr iptan eCW3 50 MG Oral iptan 2019 {tabl ed Succinate 50 ([facility] Tablet Succin 12:00: et_as MG [facility] Sumatriptan ate 50 00 AM _need Heal th Succinate MG EDT ed} Care) 50 MG Mirtazapine Mirtaz .0 suspend Mirtaz apine eCW3 15 MG Oral apine 2018 {tabl ed 15 MG ([facility] Tablet 15 MG 12:00: et_at [facility] 00 AM _[facility] EDT [facility]} Care) Mirtazapine Mirtaz .0 suspend Mirtaz apine eCW3 15 MG Oral apine 2019 {tabl ed 15 MG ([facility] Tablet 15 MG 12:00: et_at [facility] 00 AM _bedt Health EDT [facility]} Care) Mirtazapine Mirtaz .0 suspend Mirtaz apine eCW3 15 MG Oral apine 2019 {tabl ed 15 MG ([facility] Tablet 15 MG 12:00: et_at [facility] 00 AM _bedt Health EDT [facility]} Care) Mirtazapine Mirtaz .0 suspend Mirtaz apine eCW3 15 MG Oral apine 2019 {tabl ed 15 MG ([facility] Tablet 15 MG 12:00: et_at [facility] 00 AM _[facility]t [facility] EDT [facility]} Care) Mirtazapine Mirtaz .0 suspend Mirtaz apine eCW3 15 MG Oral apine 2019 {tabl ed 15 MG ([facility] Tablet 15 MG 12:00: et_at [facility] 00 AM _[facility]t Health EDT [facility]} Care) Mirtazapine Mirtaz .0 suspend Mirtaz apine eCW3 15 MG Oral apine 2019 {tabl ed 15 MG ([facility] Tablet 15 MG 12:00: et_at [facility] 00 AM _bedt Health EDT [facility]} Care) Mirtazapine Mirtaz .0 suspend Mirtaz apine eCW3 15 MG Oral apine 2019 {tabl ed 15 MG ([facility] Tablet 15 MG 12:00: et_at [facility] 00 AM _[facility]t Health EDT [facility]} Care) Acetaminoph Excedr 2.0 suspend Excedr in eCW3 en 250 MG / in 2019 {tabl ed Migraine ([facility] Aspirin 250 Migrai 12:00: ets} 250-250-6 5 [facility] MG / ne 00 AM MG Health Caffeine 65 250-25 EDT Care) MG Oral 0-65 Tablet MG [Excedrin] Excedrin Migraine 250-250-65 MG Acetaminoph Excedr 2.0 suspend Excedr in eCW3 en 250 MG / in 2019 {tabl ed Migraine ([facility] Aspirin 250 Migrai 12:00: ets} 250-250-6 5 [facility] MG / ne 00 AM MG Health Caffeine 65 250-25 EDT Care) MG Oral 0-65 Tablet MG [Excedrin] Excedrin Migraine 250-250-65 MG Acetaminoph Excedr 2.0 suspend Excedr in eCW3 en 250 MG / in 2019 {tabl ed Migraine ([facility] Aspirin 250 Migrai 12:00: ets} 250-250-6 5 [facility] MG / ne 00 AM MG Health Caffeine 65 250-25 EDT Care) MG Oral 0-65 Tablet MG [Excedrin] Excedrin Migraine 250-250-65 MG Acetaminoph Excedr 2.0 suspend Excedr in eCW3 en 250 MG / in 2019 {tabl ed Migraine ([facility] Aspirin 250 Migrai 12:00: ets} 250-250-6 5 [facility] MG / ne 00 AM MG Health Caffeine 65 250-25 EDT Care) MG Oral 0-65 Tablet MG [Excedrin] Excedrin Migraine 250-250-65 MG Acetaminoph Excedr 2.0 suspend Excedr in eCW3 en 250 MG / in 2019 {tabl ed Migraine ([facility] Aspirin 250 Migrai 12:00: ets} 250-250-6 5 [facility] MG / ne 00 AM MG Health Caffeine 65 250-25 EDT Care) MG Oral 0-65 Tablet MG [Excedrin] Excedrin Migraine 250-250-65 MG Acetaminoph Excedr 2.0 suspend Excedr in eCW3 en 250 MG / in 2019 {tabl ed Migraine ([facility] Aspirin 250 Migrai 12:00: ets} 250-250-6 5 [facility] MG / ne 00 AM MG Health Caffeine 65 250-25 EDT Care) MG Oral 0-65 Tablet MG [Excedrin] Excedrin Migraine 250-250-65 MG Acetaminoph Excedr 2.0 suspend Excedr in eCW3 en 250 MG / in 2019 {tabl ed Migraine ([facility] Aspirin 250 Migrai 12:00: ets} 250-250-6 5 [facility] MG / ne 00 AM MG Health Caffeine 65 250-25 EDT Care) MG Oral 0-65 Tablet MG [Excedrin] Excedrin Migraine 250-250-65 MG Vitamin D UNK 1.0 suspend Vitamin D eCW3 (Ergocalcif 2019 {caps ed (Ergocalcife ([facility] [place]) [id number] 12:00: ule} rol) 23719 [facility] UNIT 00 AM UNIT Health EDT Care) Vitamin D UNK 1.0 suspend Vitamin D eCW3 (Ergocalcif 2019 {caps ed (Ergocalcife ([place]) 88349 12:00: ule} rol) 08198 [facility] UNIT 00 AM UNIT Health EDT Care) Vitamin D UNK 1.0 suspend Vitamin D eCW3 (Ergocalcif 2019 {caps ed (Ergocalcife ([place]) 59961 12:00: ule} rol) 30906 [facility] UNIT 00 AM UNIT Health EDT Care) Vitamin D UNK 1.0 suspend Vitamin D eCW3 (Ergocalcif 2019 {caps ed (Ergocalcife ([facility] [place]) 84828 12:00: ule} rol) 86862 [facility] UNIT 00 AM UNIT Health EDT Care) Vitamin D UNK .0 suspend Vitamin D eCW3 (Ergocalcif 2019 {caps ed (Ergocalcife ([place]) 10978 12:00: ule} rol) 31390 [facility] UNIT 00 AM UNIT Health EDT Care) Vitamin D UNK .0 suspend Vitamin D eCW3 (Ergocalcif 2019 {caps ed (Ergocalcife ([place]) 16533 12:00: ule} rol) 96939 [facility] UNIT 00 AM UNIT Health EDT Care) Vitamin D UNK .0 suspend Vitamin D eCW3 (Ergocalcif 2019 {caps ed (Ergocalcife ([facility] [place]) 87975 12:00: ule} rol) 32803 [facility] UNIT 00 AM UNIT Health EDT Care) Diclofenac Diclof .0 suspend Diclofe nac eCW3 Sodium 50 enac 2018 {tabl ed Sodium 50 MG ( [facility] MG Delayed Sodium 12:00: et_wi [facility] Release 50 MG 00 AM th_fo Health Oral Tablet EDT od_or Care) _milk } Cyproheptad Cyproh .0 suspend Cyproh eptadi eCW3 ine eptadi 2019 {tabl ed ne HCl 4 MG ([facility] hydrochlori ne HCl 12:00: et} R[facility] r de 4 MG 4 MG 00 AM Health Oral Tablet EDT Care) Cyproheptad ine HCl 4 MG Diclofenac Diclof .0 suspend Diclofe nac eCW3 Sodium 50 enac 2019 {tabl ed Sodium 50 MG ( [facility] MG Delayed Sodium 12:00: et_wi Rive r Release 50 MG 00 AM th_fo Health Oral Tablet EDT od_or Care) _milk } Cyproheptad Cyproh .0 suspend Cyproh eptadi eCW3 ine eptadi 2019 {tabl ed ne HCl 4 MG ([facility] hydrochlori ne HCl 12:00: et} Rive r de 4 MG 4 MG 00 AM Health Oral Tablet EDT Care) Cyproheptad ine HCl 4 MG Diclofenac Diclof .0 suspend Diclofe nac eCW3 Sodium 50 enac 2019 {tabl ed Sodium 50 MG ( [facility] MG Delayed Sodium 12:00: et_wi Rive r Release 50 MG 00 AM th_fo Health Oral Tablet EDT od_or Care) _milk } Cyproheptad Cyproh .0 suspend Cyproh eptadi eCW3 ine eptadi 2018 {tabl ed ne HCl 4 MG ([facility] hydrochlori ne HCl 12:00: et} Rive r de 4 MG 4 MG 00 AM Health Oral Tablet EDT Care) Cyproheptad ine HCl 4 MG Cyproheptad Cyproh .0 suspend Cyproh eptadi eCW3 ine eptadi 2018 {tabl ed ne HCl 4 MG ([facility] hydrochlori ne HCl 12:00: et} Rive r de 4 MG 4 MG 00 AM Health Oral Tablet EDT Care) Cyproheptad ine HCl 4 MG Cyproheptad Cyproh .0 suspend Cyproh eptadi eCW3 ine eptadi 2018 {tabl ed ne HCl 4 MG ([facility] hydrochlori ne HCl 12:00: et} Rive r de 4 MG 4 MG 00 AM Health Oral Tablet EDT Care) Cyproheptad ine HCl 4 MG Diclofenac Diclof .0 suspend Diclofe nac eCW3 Sodium 50 enac 2019 {tabl ed Sodium 50 MG ( [facility] MG Delayed Sodium 12:00: et_wi Rive r Release 50 MG 00 AM th_fo Health Oral Tablet EDT od_or Care) _milk } Diclofenac Diclof .0 suspend Diclofe nac eCW3 Sodium 50 enac 2018 {tabl ed Sodium 50 MG ( [facility] MG Delayed Sodium 12:00: et_wi Rive r Release 50 MG 00 AM th_fo Health Oral Tablet EDT od_or Care) _milk } Diclofenac Diclof .0 suspend Diclofe nac eCW3 Sodium 50 enac 2018 {tabl ed Sodium 50 MG ( [facility] MG Delayed Sodium 12:00: et_wi Rive r Release 50 MG 00 AM th_fo Health Oral Tablet EDT od_or Care) _milk } Cyproheptad Cyproh .0 suspend Cyproh eptadi eCW3 ine eptadi 2018 {tabl ed ne HCl 4 MG ([facility] hydrochlori ne HCl 12:00: et} Rive r de 4 MG 4 MG 00 AM Health Oral Tablet EDT Care) Cyproheptad ine HCl 4 MG Cyproheptad Cyproh .0 suspend Cyproh eptadi eCW3 ine eptadi 2018 {tabl ed ne HCl 4 MG ([facility] hydrochlori ne HCl 12:00: et} Rive r de 4 MG 4 MG 00 AM Health Oral Tablet EDT Care) Cyproheptad ine HCl 4 MG Diclofenac Diclof .0 suspend Diclofe nac eCW3 Sodium 50 enac 2018 {tabl ed Sodium 50 MG ( [facility] MG Delayed Sodium 12:00: et_wi Rive r Release 50 MG 00 AM th_fo Health Oral Tablet EDT od_or Care) _milk } Cyproheptad Cyproh .0 suspend Cyproh eptadi eCW3 ine eptadi 2017 {tabl ed ne HCl 4 MG ([facility] hydrochlori ne HCl 12:00: et} Rive r de 4 MG 4 MG 00 AM Health Oral Tablet EST Care) Cyproheptad ine HCl 4 MG Cyproheptad Cyproh .0 suspend Cyproh eptadi eCW3 ine eptadi 2017 {tabl ed ne HCl 4 MG ([facility] hydrochlori ne HCl 12:00: et} Rive r de 4 MG 4 MG 00 AM Health Oral Tablet EST Care) Cyproheptad ine HCl 4 MG Cyproheptad Cyproh .0 suspend Cyproh eptadi eCW3 ine eptadi 2017 {tabl ed ne HCl 4 MG ([facility] hydrochlori ne HCl 12:00: et} Rive r de 4 MG 4 MG 00 AM Health Oral Tablet EST Care) Cyproheptad ine HCl 4 MG Cyproheptad Cyproh .0 suspend Cyproh eptadi eCW3 ine eptadi 2017 {tabl ed ne HCl 4 MG ([facility] hydrochlori ne HCl 12:00: et} Rive r de 4 MG 4 MG 00 AM Health Oral Tablet EST Care) Cyproheptad ine HCl 4 MG Cyproheptad Cyproh .0 suspend Cyproh eptadi eCW3 ine ep2017 {tabl ed ne HCl 4 MG ([facility] hydrochlori ne HCl 12:00: et} Rive r de 4 MG 4 MG 00 AM Health Oral Tablet EST Care) Cyproheptad ine HCl 4 MG Cyproheptad Cyproh .0 suspend Cyproh eptadi eCW3 ine eptadi 2017 {tabl ed ne HCl 4 MG ([facility] hydrochlori ne HCl 12:00: et} Rive r de 4 MG 4 MG 00 AM Health Oral Tablet EST Care) Cyproheptad ine HCl 4 MG Cyproheptad Cyproh .0 suspend Cyproh eptadi eCW3 ine epta2017 {tabl ed ne HCl 4 MG ([facility] hydrochlori ne HCl 12:00: et} Rive r de 4 MG 4 MG 00 AM Health Oral Tablet EST Care) Cyproheptad ine HCl 4 MG Ortho Ortho .0 suspend Ortho eCW3 Tri-Cyclen Tri-Cy 2018 {tabl ed Tri-Cyclen ([facility] Lo clen 12:00: et} Lo [facility] 0.18/0.215/ Lo 00 AM 0.18/0.215/0 Health 0.25 MG-25 0.18/0 EDT .25 MG-25 Ca re) MCG .215/0 MCG .25 MG-25 MCG Ortho UNK .0 suspend Ortho eCW3 Tri-Cyclen 2017 {tabl ed Tri-Cyclen ([facility] 12:00: et} Lo [facility] 0.18/0.215/ 00 AM 0.18/0.215/0 Health 0.25 MG-25 EDT .25 MG-25 Care ) MCG MCG Ortho UNK .0 suspend Ortho eCW3 Tri-Cyclen 2018 {tabl ed Tri-Cyclen ([facility] 12:00: et} Lo [facility] 0.18/0.215/ 00 AM 0.18/0.215/0 Health 0.25 MG-25 EDT .25 MG-25 Care ) MCG MCG Ortho UNK .0 suspend Ortho eCW3 Tri-Cyclen 2018 {tabl ed Tri-Cyclen ([facility] 12:00: et} Lo [place] 0.18/0.215/ 00 AM 0.18/0.215/0 Health 0.25 MG-25 EDT .25 MG-25 Care ) MCG MCG Ortho UNK .0 suspend Ortho eCW3 Tri-Cyclen 2018 {tabl ed Tri-Cyclen ([facility] Lo 12:00: et} Lo [place] 0.18/0.215/ 00 AM 0.18/0.215/0 Health 0.25 MG-25 EDT .25 MG-25 Care ) MCG MCG Ortho Ortho .0 suspend Ortho eCW3 Tri-Cyclen Tri-Cy 2018 {tabl ed Tri-Cyclen ([facility] Lo clen 12:00: et} Lo [place] 0.18/0.215/ Lo 00 AM 0.18/0.215/0 Health 0.25 MG-25 0.18/0 EDT .25 MG-25 Ca re) MCG .215/0 MCG .25 MG-25 MCG Ortho UNK .0 suspend Ortho eCW3 Tri-Cyclen 2018 {tabl ed Tri-Cyclen ([facility] Lo 12:00: et} Lo [place] 0.18/0.215/ 00 AM 0.18/0.215/0 Health 0.25 MG-25 EDT .25 MG-25 Care ) MCG MCG pantoprazol Pantop .0 suspend Pantop razole eCW3 e 40 MG razole 2018 {tabl ed Sodium 40 MG ( [facility] Delayed Sodium 12:00: et} [facility] Release 40 MG 00 AM Health Oral Tablet EDT Care) Pantoprazol e Sodium 40 MG pantoprazol Pantop .0 suspend Pantop razole eCW3 e 40 MG razole 2018 {tabl ed Sodium 40 MG ( [facility] Delayed Sodium 12:00: et} [facility] Release 40 MG 00 AM Health Oral Tablet EDT Care) Pantoprazol e Sodium 40 MG pantoprazol Pantop .0 suspend Pantop razole eCW3 e 40 MG razole 2018 {tabl ed Sodium 40 MG ( [facility] Delayed Sodium 12:00: et} [facility] Release 40 MG 00 AM Health Oral Tablet EDT Care) Pantoprazol e Sodium 40 MG pantoprazol Pantop .0 suspend Pantop razole eCW3 e 40 MG razole 2018 {tabl ed Sodium 40 MG ( [facility] Delayed Sodium 12:00: et} [facility] Release 40 MG 00 AM Health Oral Tablet EDT Care) Pantoprazol e Sodium 40 MG pantoprazol Pantop .0 suspend Pantop razole eCW3 e 40 MG razole 2018 {tabl ed Sodium 40 MG ( [facility] Delayed Sodium 12:00: et} [facility] Release 40 MG 00 AM Health Oral Tablet EDT Care) Pantoprazol e Sodium 40 MG pantoprazol Pantop .0 suspend Pantop razole eCW3 e 40 MG razole 2018 {tabl ed Sodium 40 MG ( [facility] Delayed Sodium 12:00: et} [facility] Release 40 MG 00 AM Health Oral Tablet EDT Care) Pantoprazol e Sodium 40 MG pantoprazol Pantop .0 suspend Pantop razole eCW3 e 40 MG razole 2018 {tabl ed Sodium 40 MG ( [facility] Delayed Sodium 12:00: et} [facility] Release 40 MG 00 AM Health Oral Tablet EDT Care) Pantoprazol e Sodium 40 MG Loratadine Clarit .0 suspend Clariti n 10 eCW3 10 MG Oral in 2017 {tabl ed mg (Young Tablet mg 12:00: et} [place] [Claritin] 00 AM [place] [address] EDT [facility]) mg Loratadine Clarit .0 suspend Clariti n 10 eCW3 10 MG Oral in 2017 {tabl ed mg (Young Tablet mg 12:00: et} [place] [Claritin] 00 AM [place] [address] EDT [facility]) mg Loratadine Clarit .0 suspend Clariti n 10 eCW3 10 MG Oral in 2017 {tabl ed mg (Young Tablet mg 12:00: et} [place] [Claritin] 00 AM [place] [address] EDT Care) mg Loratadine Clarit .0 suspend Clariti n 10 eCW3 10 MG Oral in 2017 {tabl ed mg ([facility] Tablet mg 12:00: et} [place] [Claritin] 00 AM [facility] 10 EDT [facility]) mg Loratadine Clarit .0 suspend Clariti n 10 eCW3 10 MG Oral in 2017 {tabl ed mg (Young Tablet mg 12:00: et} [place] [Claritin] 00 AM [facility] 10 EDT [facility]) mg Loratadine Clarit .0 suspend Clariti n 10 eCW3 10 MG Oral in 2017 {tabl ed mg ([facility] Tablet mg 12:00: et} [place] [Claritin] 00 AM [place] [address] EDT [facility]) mg Loratadine Clarit .0 suspend Clariti n 10 eCW3 10 MG Oral in 2017 {tabl ed mg (Young Tablet mg 12:00: et} [place] [Clar[place]] 00 AM [facility] 10 EDT [facility]) mg Classic Classi .0 active Classic eCW 3 c 2017 {tabl ([place] 28-0.8 MG Prenat 12:00: et} 28-0.8 MG R iver al 00 AM [facility] 28-0.8 EDT Care) MG Classic Classi .0 active Classic eCW 3 c 2016 {tabl ([place] 28-0.8 MG Prenat 12:00: et} 28-0.8 MG R iver al 00 AM Health 28-0.8 EDT Care) MG Classic Classi .0 active Classic eCW 3 c 2017 {tabl ([place] 28-0.8 MG Prenat 12:00: et} 28-0.8 MG R iver al 00 AM Health 28-0.8 EDT Care) MG Classic Classi .0 active Classic eCW 3 c 2017 {tabl ([place] 28-0.8 MG Prenat 12:00: et} 28-0.8 MG R iver al 00 AM Health 28-0.8 EDT Care) MG Classic Classi 1.0 active Classic eCW 3 c 2017 {tabl ([place] 28-0.8 MG Prenat 12:00: et} 28-0.8 MG R iver al 00 AM Health 28-0.8 EDT Care) MG Classic Classi .0 active Classic eCW 3 c 2017 {tabl ([place] 28-0.8 MG Prenat 12:00: et} 28-0.8 MG R iver al 00 AM Health 28-0.8 EDT Care) MG Classic Classi .0 active Classic eCW 3 c 2017 {tabl ([place] 28-0.8 MG Prenat 12:00: et} 28-0.8 MG R iver al 00 AM [facility] 28-0.8 EDT Care) MG Alprazolam Alpraz suspend Alprazola m eCW3 0.25 MG olam ed 0.25 MG ([facility] Oral Tablet 0.25 [facility]) Alprazolam Alpraz suspend Alprazola m eCW3 0.25 MG olam ed 0.25 MG ([facility] Oral Tablet 0.25 [facility]) Alprazolam Alpraz suspend Alprazola m eCW3 0.25 MG olam ed 0.25 MG ([facility] Oral Tablet 0.25 [facility]) Alprazolam Alpraz suspend Alprazola m eCW3 0.25 MG olam ed 0.25 MG ([facility] Oral Tablet 0.25 [facility]) Alprazolam Alpraz suspend Alprazola m eCW3 0.25 MG olam ed 0.25 MG ([facility] Oral Tablet 0.25 [facility]) Alprazolam Alpraz suspend Alprazola m eCW3 0.25 MG olam ed 0.25 MG ([facility] Oral Tablet 0.25 [facility]) Alprazolam Alpraz suspend Alprazola m eCW3 0.25 MG olam ed 0.25 MG (Young Oral Tablet 0.25 [facility]) Insurance Providers Payer name Policy type Policy ID Covered Covered constitution party's Policy P shanelle / Coverage constitution party ID relationship to Desai Inf ormation type desai MACEY [id number] 200 [facility] NON [facility] [id number] 200 [facility] MACEY CARE W [id number] [place] CARE W [id number] [place] Affinity MKD [id number] S [id number] Managed Care Medicaid [id number] S [id number] Regular Clinic Visit [place] [facility] [id number] S [id number] Options MKD Problems, Conditions, and Diagnoses Code Display Name Description Problem Type Effective Data Sour ce(s) Dates Z67.41 Type O blood, Rh Type O blood, Rh Problem 04/01/2019 eC W3 (Youg[place] negative negative 12:00:00 AM [facility] EST Care) M16.12 Arthritis of left Arthritis of left Problem 12/27/2018 eCW3 ([place] hip hip 12:00:00 AM [facility] EDT Care) F43.9 Stress Stress Problem 10/19/2018 eCW3 ([facility] 12:00:00 AM [facility] EDT Care) G43.009 Migraine without Migraine without Problem 10/19/2018 eC W3 (Young aura and without aura and without 12:00:00 AM [facility] status status EDT Care) migrainosus, not migrainosus, not intractable intractable D72.828 Other elevated Other elevated Problem 08/13/2018 eCW3 ( [place] white blood cell white blood cell 12:00:00 AM [facility] (WBC) count (WBC) count EDT Care) F41.9 Anxiety Anxiety Problem 02/08/2018 eCW3 ([facility] 12:00:00 AM [facility] EST Care) K29.70 Gastritis Gastritis Problem 09/08/2017 eCW3 ([facility] 12:00:00 AM [facility] EDT Care) R20.8 Skin sensation Decreased Problem 09/08/2017 eCW3 ([place] disturbance sensation 12:00:00 AM [facility] EDT Care) Z91.09 Allergy to Allergy to Problem 05/30/2017 eCW3 ([facility] environmental environmental 12:00:00 AM [facility] factors EDT [facility]) E55.9 Vitamin D Vitamin D Problem 03/29/2017 eCW3 ([place] deficiency deficiency 12:00:00 AM [facility] EST Care) H04.123 Dry eyes, Dry eyes, Problem 03/17/2017 eCW3 ([place] bilateral bilateral 12:00:00 AM [facility]) Z64.1 Multiparity Multiparity Problem 02/08/2017 eCW3 ([place] 12:00:00 AM [facility]) D72.9 White blood cell Abnormal WBC Problem 01/05/2017 eCW3 ( [place] disorder count 12:00:00 AM 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 10/30/2018 [place] [facility] junction syndrome JUNCTION SYNDROME 10:46:00 AM [facility] [[facility]] ([facility]) EDT 309.28 ADJUSTMENT ADJ REACT-MIXED Diagnosis 05/05/2018 [place] ([place] DISORDER WITH EMOTION 04:02:22 PM Mohit MIXED ANXIETY AND EST [place] DEPRESSED MOOD [facility]) Surgeries/Procedures Procedure Description Date Indications Data Source(s) EKG W INTERPRETATION 11/27/2018 eCW3 ([place] 12:00:00 AM ED Health [facility]) Results ID Date Data Source [id number] 11/20/2019 02:35:00 PM EDT [facility] Name Value Range Interpretation Description Data Sup porting Code Source(s) Document(s ) SARS [facility] coronavirus 2 RNA This lab was ordered by [facility] and reported by [facility]. Procedure Social History Code Duration Value Status Description Data Source(s ) Smoking 11/20/2019 Never Smoker completed Never Smoker eCW3 ([place] 12:00:00 AM EDT [facility]) Smoking 11/05/2019 Never Smoker completed Never Smoker eCW3 ([place] 12:00:00 AM [facility]) Smoking 10/29/2019 Never Smoker completed Never Smoker eCW3 ([place] 12:00:00 AM [facility]) Smoking 10/08/2019 Never Smoker completed Never Smoker eCW3 ([place] 12:00:00 AM [facility]) Smoking 09/10/2019 Never Smoker completed Never Smoker eCW3 ([place] 12:00:00 AM [facility]) Smoking 09/10/2019 Never Smoker completed Never Smoker eCW3 ([place] 12:00:00 AM [facility]) Smoking 06/25/2019 Never Smoker completed Never Smoker eCW3 ([place] 12:00:00 AM [facility]) Never Smoker completed Never Smoker eCW3 ([facility]) Never Smoker completed Never Smoker eCW3 ([facility]) Never Smoker completed Never Smoker eCW3 ([facility]) Smoking Unknown if ever completed Unknown if ever Mao ruby Goss smoked [facility] Never Smoker completed Never Smoker eCW3 ([facility]) Never Smoker completed Never Smoker eCW3 ([facility]) Never Smoker completed Never Smoker eCW3 ([facility]) Never Smoker completed Never Smoker eCW3 ([facility]) Vital Signs ID Date Data Source UNK Name Value Range Interpretation Code Description Data Source(s) Diastolic blood 76 mm[Hg] 76 mm[Hg] eCW3 ([facility]) Systolic blood 142 mm[Hg] 142 mm[Hg] eCW3 ([facility]) Body temperature 98.0 [degF] 98.0 [degF] eCW3 ( [facility]) Body mass index 25.68 kg/m2 25.68 kg/m2 eCW3 ([facility] [place] (BMI) [Ratio] [facility]) Body weight 164 [lb_av] 164 [lb_av] eCW3 ([facility]) Body height 67 [in_i] 67 [in_i] eCW3 ([facility]) Diastolic blood 69 mm[Hg] 69 mm[Hg] eCW3 ([facility]) Systolic blood 110 mm[Hg] 110 mm[Hg] eCW3 ([facility]) Body temperature 98.0 [degF] 98.0 [degF] eCW3 ( [facility]) Body mass index 26.00 kg/m2 26.00 kg/m2 eCW3 ([place] (BMI) [Ratio] [facility]) Body weight 166 [lb_av] 166 [lb_av] eCW3 ([facility]) Body height 67 [in_i] 67 [in_i] eCW3 ([facility]) Diastolic blood 67 mm[Hg] 67 mm[Hg] eCW3 ([facility]) Systolic blood 117 mm[Hg] 117 mm[Hg] eCW3 ([facility]) Body temperature 98.7 [degF] 98.7 [degF] eCW3 ( [facility]) Body mass index 25.84 kg/m2 25.84 kg/m2 eCW3 ([place] (BMI) [Ratio] [facility]) Body weight 165 [lb_av] 165 [lb_av] eCW3 ([facility]) Body height 67 [in_i] 67 [in_i] eCW3 ([facility]) Body height 67 [in_i] 67 [in_i] eCW3 ([facility]) Diastolic blood 71 mm[Hg] 71 mm[Hg] eCW3 ([facility]) Systolic blood 115 mm[Hg] 115 mm[Hg] eCW3 ([facility]) Body temperature 98.1 [degF] 98.1 [degF] eCW3 ( [facility]) Body mass index 25.21 kg/m2 25.21 kg/m2 eCW3 ([place] (BMI) [Ratio] [facility]) Body weight 161 [lb_av] 161 [lb_av] eCW3 ([facility]) Body height 67 [in_i] 67 [in_i] eCW3 ([facility]) Diastolic blood 78 mm[Hg] 78 mm[Hg] eCW3 ([facility]) Systolic blood 146 mm[Hg] 146 mm[Hg] eCW3 ([facility]) Body temperature 98.8 [degF] 98.8 [degF] eCW3 ( [facility]) Body mass index 25.21 kg/m2 25.21 kg/m2 eCW3 (Carolyn guallpa (BMI) [Ratio] [facility]) Body weight 161 [lb_av] 161 [lb_av] eCW3 ([facility]) Body height 67 [in_i] 67 [in_i] eCW3 ([facility]) Diastolic blood 73 mm[Hg] 73 mm[Hg] eCW3 ([facility]) Systolic blood 126 mm[Hg] 126 mm[Hg] eCW3 ([facility]) Body temperature 98.0 [degF] 98.0 [degF] eCW3 ( [facility]) Body mass index 25.84 kg/m2 25.84 kg/m2 eCW3 ([place]yn guallpa (BMI) [Ratio] [facility]) Body weight 165 [lb_av] 165 [lb_av] eCW3 ([facility]) Body height 67 [in_i] 67 [in_i] eCW3 ([facility]) Patient Treatment Plan of Care Planned Activity Planned Date Details Description Data Source (s) Vitamins 11/07/2019 12:00:00 eCW 3 ([facility] 28-0.8 MG AM [facility]) 24 HR ferrous sulfate 11/07/2019 12:00:00 eCW3 ([facility] 142 MG Extended AM [facility]) Release Oral Tablet [Slow-Fe]
[2019-11-25] MEDS ORDERED: ACETAMINOPHEN/CAFFEINE/BUTALBITAL 1 TAB PO ONE (02:31)
[2019-11-25 02:37] VITALS: BP 131/82
[2019-11-25] MEDS ORDERED: ACETAMINOPHEN/CAFFEINE/BUTALBITAL 1 TAB ONE (02:51)
[2019-11-25 03:04] LABS: BASO % 0.4 % (0-2.0); EOS % 3.3 % (0-4.5); HEMOGLOBIN 12.7 GM/dL (10.7-15.3); LYMPH % 36.2 % (8-40); MCH 30.5 pg (25.7-33.7); MCHC 35.3 g/dl (32.0-36.0); MEAN CELL VOLUME 86.5 fl (80-96); NEUT % 55.1 % (42.8-82.8); PLATELET COUNT 234 K/MM3 (134-434); RBC 4.16 M/mm3 (3.60-5.2); RDW 13.5 % (11.6-15.6); WHITE BLOOD COUNT 9.1 K/mm3 (4.0-10.0)
[2019-11-25 03:52] LABS: ALBUMIN 2.8 g/dl (3.4-5.0); BILIRUBIN,TOTAL 0.2 mg/dL (0.2-1); BLOOD UREA NITROGEN 11.7 mg/dL (7-18); CREATININE 0.6 mg/dL (0.55-1.3); POTASSIUM 3.9 mmol/L (3.5-5.1); TOT PROT 6.4 g/dl (6.4-8.2)
[2019-11-25 04:39] LABS: EPI CELLS 6 /uL (0-25.1); HYALINE CASTS 0 /uL (0-3.1); PH,URINE 7.5 (5.0-8.0); URINE APPEARANCE CLEAR; URINE BACTERIA 52 /uL (0-1359); URINE BILIRUBIN NEGATIVE (NEGATIVE); URINE COLOR YELLOW; URINE GLUCOSE (UA) NEGATIVE (NEGATIVE); URINE KETONE NEGATIVE (NEGATIVE); URINE LEUK ESTERASE NEGATIVE (NEGATIVE); URINE NITRITE NEGATIVE (NEGATIVE); URINE PROTEIN NEGATIVE (NEGATIVE); URINE RBC 1 /uL (0-23.9); URINE UROBILINOGEN 0.2 mg/dL (0.2-1.0); URINE WBC 3 /uL (0-25.8)
== END 2019-11-25 06:05 | disposition home or self-care (01) ==
LOC: JER 02:09
DX: R51 Headache (principal)
CPT/HCPCS: 36415; 80053; 81003; 85025; 87086; 99283-25

== ENCOUNTER 2020-01-18 04:27 | Day surgery (SDC) | payer OTHER ==
[2020-01-17 11:15] VITALS: BMI 25.7
[2020-01-18] MEDS ORDERED: BUPIVACAINE HCL/PF 0.25% (2.5MG/ML) 10 ML VIAL ONE (07:33)
[2020-01-18] MEDS ORDERED: NEOSTIGMINE METHYLSULFATE 0.5 MG/ML - 10 ML MDV ONE (07:39)
[2020-01-18] MEDS ORDERED: SUCCINYLCHOLINE CHLORIDE 200 MG/10 ML SYRINGE ONE (07:39)
[2020-01-18] MEDS ORDERED: EPHEDRINE SULFATE/0.9% NACL/PF 50 MG/10 ML SYRINGE NR ONE (07:39)
[2020-01-18] MEDS ORDERED: GLYCOPYRROLATE 0.2 MG/1 ML VIAL ONE (07:39)
[2020-01-18] MEDS ORDERED: fentaNYL CITRATE 250 MCG/5 ML VIAL ONE (07:39)
[2020-01-18] MEDS ORDERED: PROPOFOL 20 ML ONE ×3 (07:40)
[2020-01-18] MEDS ORDERED: ROCURONIUM BROMIDE 100 MG/10 ML VIAL ONE ×2 (07:40→09:10)
[2020-01-18] MEDS ORDERED: MIDAZOLAM HCL 2 MG/2 ML SINGLE DOSE VIAL ONE (07:40)
[2020-01-18] MEDS ORDERED: BUPIVACAINE HCL/PF 2.5 MG/ML - 30 ML VIAL IJ ONE ×2 (08:36)
[2020-01-18] MEDS ORDERED: BUPIVACAINE HCL 100 ML ONE (10:18)
[2020-01-18] MEDS ORDERED: oxyCODONE HCL 5 MG TABLET PO PRN ×2 (12:14)
[2020-01-18] MEDS ORDERED: ONDANSETRON 4 MG/2 ML VIAL IVPUSH PRN (12:14)
[2020-01-18] MEDS ORDERED: LACTATED RINGERS SOLUTION 1,000 ML IV SCH (12:15)
[2020-01-18 13:18] VITALS: BP 110/68; PULSE 78; TEMP 96.9
== END 2020-01-18 13:10 | disposition home or self-care (01) ==
LOC: JASU-SURG 04:27
PROVIDERS: ATTEND Obstetrics & Gynecology
PROC: 0U574ZZ Destruction of Bilateral Fallopian Tubes, Percutaneous Endoscopic Approach (ICD-10-PCS; principal; 2020-01-18 08:00)
DX: Z30.2 Encounter for sterilization (principal)
CPT/HCPCS: 81025; 88302-TC; 94760

== ENCOUNTER 2020-03-29 15:18 | Emergency (ER) | payer OTHER ==
[2020-03-29 15:33] VITALS: BP 133/85; PULSE 94; TEMP 97.6; BMI 25.8
[2020-03-29] MEDS ORDERED: IBUPROFEN 400 MG TABLET (FP) PO ONE ×2 (16:35→16:37)
== END 2020-03-29 16:49 | disposition home or self-care (01) ==
LOC: JERFT 15:18
DX: R51.9 Headache, unspecified (principal)
CPT/HCPCS: 93005; 93010; 99283-25

== ENCOUNTER 2021-05-23 13:49 | Emergency (ER) | payer OTHER ==
[2021-05-23 14:10] VITALS: BP 117/79; PULSE 85; TEMP 98.4; BMI 26.4
== END 2021-05-23 15:02 | disposition home or self-care (01) ==
LOC: JERFT 13:49
DX: R09.89 Other specified symptoms and signs involving the circulatory and respiratory systems (principal)
CPT/HCPCS: 70360-TC-FY; 71046-TC-FY; 99284-25

== ENCOUNTER 2022-05-10 04:16 | Day surgery (SDC) | payer OTHER ==
[2022-05-06 11:02] VITALS: BMI 26.3
[2022-05-10] MEDS ORDERED: MIDAZOLAM HCL 2 MG/2 ML SINGLE DOSE VIAL ONE ×2 (16:03→16:08)
[2022-05-10] MEDS ORDERED: ONDANSETRON 4 MG/2 ML VIAL ONE (16:03)
[2022-05-10] MEDS ORDERED: DEXAMETHASONE SOD PHOSPHATE 4 MG/1 ML VIAL ONE (16:13)
[2022-05-10] MEDS ORDERED: KETOROLAC TROMETHAMINE 30 MG/1 ML VIAL ONE (16:13)
[2022-05-10 16:43] VITALS: TEMP 97.7
[2022-05-10 19:47] VITALS: BP 110/57; PULSE 72; RESP 20
== END 2022-05-10 19:20 | disposition home or self-care (01) ==
LOC: JASU-SURG 04:16
PROVIDERS: ATTEND Urology
PROC: 0TF3XZZ Fragmentation in Right Kidney Pelvis, External Approach (ICD-10-PCS; principal; 2022-05-10 13:30)
DX: N20.0 Calculus of kidney (principal)
CPT/HCPCS: 81025

== ENCOUNTER 2022-10-18 15:28 | Emergency (ER) | payer OTHER ==
[2022-10-18 15:46] VITALS: RESP 18; BMI 28.0
[2022-10-18 17:45] LABS: HCG,QUALITATIVE URINE Negative
[2022-10-18 17:47] VITALS: BP 107/71; PULSE 68; TEMP 97.4
[2022-10-18 17:50] LABS: EPI CELLS >36 /uL (0-25.1); HYALINE CASTS 1 /uL (0-3.1); PH,URINE 6.5 (5.0-8.0); URINE APPEARANCE CLEAR; URINE BACTERIA 1630 /uL (0-1359); URINE BILIRUBIN NEGATIVE (NEGATIVE); URINE COLOR YELLOW; URINE GLUCOSE (UA) NEGATIVE (NEGATIVE); URINE KETONE TRACE (NEGATIVE); URINE LEUK ESTERASE 1+ (NEGATIVE); URINE NITRITE NEGATIVE (NEGATIVE); URINE PROTEIN TRACE (NEGATIVE); URINE RBC 28 /uL (0-23.9); URINE WBC 49 /uL (0-25.8)
[2022-10-18] MEDS ORDERED: LIDOCAINE HCL 1%, 10 MG/ML (10ML VIAL) MDV ONE (20:02)
== END 2022-10-18 20:20 | disposition home or self-care (01) ==
LOC: JER 15:28
DX: N83.201 Unspecified ovarian cyst, right side (principal); N72 Inflammatory disease of cervix uteri; R10.30 Lower abdominal pain, unspecified
CPT/HCPCS: 36415; 76830-TC; 81003; 84703; 87070; 87086; 87205; 87491; 87591; 99284-25

== ENCOUNTER 2022-11-22 04:12 | Day surgery (SDC) | payer OTHER ==
[2022-11-17 10:10] VITALS: BMI 26.9
[2022-11-22 06:25] VITALS: RESP 20
[2022-11-22] MEDS ORDERED: MIDAZOLAM HCL 2 MG/2 ML SINGLE DOSE VIAL ONE (07:46)
[2022-11-22 08:42] VITALS: TEMP 97.3
[2022-11-22 11:41] VITALS: BP 101/65; PULSE 68
== END 2022-11-22 12:16 | disposition home or self-care (01) ==
LOC: JASU-SURG 04:12
PROVIDERS: ATTEND Urology
PROC: 0TF4XZZ Fragmentation in Left Kidney Pelvis, External Approach (ICD-10-PCS; principal; 2022-11-22 08:00)
DX: N20.0 Calculus of kidney (principal)
CPT/HCPCS: 81025